=== PATIENT | male | born 1960 | race Caucasian/White ===

== ENCOUNTER 2019-05-06 00:13 | Inpatient (IN) | payer OTHER ==
[~2019-05-06] VITALS: Ht 185.4 cm; Wt 60.8 kg
[2019-05-06 00:15] VITALS: BP 141/63; PULSE 81; RESP 18
[2019-05-06 00:40] VITALS: Ht 185.4 cm; Wt 60.8 kg
[2019-05-06 02:00] VITALS: BP 118/67; PULSE 87; RESP 18
[2019-05-06] MEDS ORDERED: ACETAMINOPHEN 325 MG TAB PEG PRN (02:00)
[2019-05-06] MEDS ORDERED: NACL 0.9% 3 ML SYG IV SCH (02:00)
[2019-05-06] MEDS ORDERED: morphine 2 MG INJ IV PRN (02:00)
[2019-05-06] MEDS ORDERED: ALBUTEROL/IPRATROPIUM (NEB) 3 ML AMP HHN PRN (02:00)
[2019-05-06] MEDS ORDERED: ONDANSETRON 4 MG INJ IV PRN (02:00)
[2019-05-06] MEDS ORDERED: CARB15DR3 BOTH EYES (02:17)
[2019-05-06] MEDS ORDERED: LANS15CA5 GTB (02:17)
[2019-05-06] MEDS ORDERED: LEVA1.257 INHALATION (02:17)
[2019-05-06] MEDS ORDERED: ASC500 GTB (02:17)
[2019-05-06] MEDS ORDERED: MULTI GTB (02:17)
[2019-05-06] MEDS ORDERED: FER325 GTB (02:17)
[2019-05-06] MEDS ORDERED: MAGN400T28 GTB (02:17)
[2019-05-06] MEDS ORDERED: ACET325T45 GTB (02:17)
[2019-05-06] MEDS ORDERED: CYAN100080 GTB (02:17)
[2019-05-06] MEDS ORDERED: ACET-2047 GTB (02:17)
[2019-05-06] MEDS ORDERED: PHEN30SP8 MM (02:17)
[2019-05-06] MEDS ORDERED: TETR15DR63 BOTH EYES (02:17)
[2019-05-06] MEDS ORDERED: FLUT9.9S NASAL (02:17)
[2019-05-06] MEDS: DEXTROSE 5%-0.45% NACL 1,000 ML IV SCH ×3 (02:26→20:22)
[2019-05-06] MEDS ORDERED: FLUTICASONE 0.05% 16 GM NAS SPRAY NASAL PRN (03:30)
[2019-05-06] MEDS ORDERED: TETRAHYDROZOLINE 0.05% 15 ML OPH BOTH EYES PRN (03:30)
[2019-05-06] MEDS ORDERED: CARBOXYMETHYLCELLULOSE 0.5% 0.4 ML OPH BOTH EYES PRN (03:30)
[2019-05-06] MEDS: PANTOPRAZOLE 40 MG INJ IV SCH (05:45)
[2019-05-06] MEDS ORDERED: PHENOL 1.4% SOLN 180 ML BTL MT PRN (06:30)
[2019-05-06 08:00] VITALS: BP 149/67; PULSE 68; RESP 20
[2019-05-06] MEDS: FERROUS SULFATE (EC) 325 MG TAB PO SCH ×2 (09:00→13:00)
[2019-05-06] MEDS: CYANOCOBALAMIN 500 MCG TAB GTB SCH (09:10)
[2019-05-06] MEDS: MULTIVITAMINS 30 ML CUP GTB SCH (09:10)
[2019-05-06] MEDS: ASCORBIC ACID 500 MG TAB GTB SCH (09:10)
--- NOTE | 2019-05-06 10:36 | HP ---
Date/Time of Note Date/Time of Note DATE: 05/06/19 TIME: 10:33 Assessment/Plan VTE Prophylaxis Pharmacological prophylaxis: heparin Lines/Catheters IV Catheter Type (from [facility]): [place] Urinary Cath still in place: No Assessment/Plan Assessment/Plan 58-year-old male with a history of gastric cancer, CVA, chronic encephalopathy, open heart surgery, IVC filter placement, G-tube status, likely iron deficiency anemia, right-sided colostomy transferred from outside hospital because of insurance reason for management/work-up of anemia PLAN -No reported history of hematemesis. Patient has a colostomy with greenish stool. Reportedly guaiac was negative at the outside facility -FOBT, iron study -GI consult -Continue home meds, adjust as needed -Gather additional information from family during the day about his cancer history and his chronic disease. -Continue supportive care Result Diagram: 05/06/19 0605/06/19 0605 Results 24hrs Laboratory Tests Test 05/06/19 06:05 White Blood Count 8.7 Red Blood Count 3.48 L Hemoglobin 7.0 L Hematocrit 24.6 L Mean Corpuscular Volume 70.7 L Mean Corpuscular Hemoglobin 20.1 L Mean Corpuscular Hemoglobin Concent 28.5 L Red Cell Distribution Width 18.6 H Platelet Count 667 H Mean Platelet Volume 8.6 Immature Granulocytes % 0.700 H Neutrophils % 71.7 Segmented Neutrophils % (Manual) 69 Band Neutrophils % (Manual) 5 H Lymphocytes % 17.8 Lymphocytes % (Manual) 19 Reactive Lymphocytes % (Manual) 1 H Monocytes % 8.1 Monocytes % (Manual) 1 Eosinophils % 0.9 Eosinophils % (Manual) 2 Basophils % 0.8 Basophils % (Manual) 3 H Nucleated Red Blood Cells % 0.0 Immature Granulocytes # 0.060 H Neutrophils # 6.2 Neutrophils # (Manual) 6.0 Band Neutrophils # 0.4 Lymphocytes (Manual) 1.6 Lymphocytes # 1.6 Reactive Lymphocytes # 0.0 Monocytes # 0.7 Monocytes # (Manual) 0.0 L Eosinophils # 0.1 Basophils # 0.1 Basophils # (Manual) 0.2 H Nucleated Red Blood Cells # 0.0 Platelet Estimate INCREASED Giant Platelets 4 H Polychromasia 3+ Poikilocytosis 1+ Anisocytosis 2+ Macrocytosis 1+ Sodium Level 138 Potassium Level 3.9 Chloride Level 103 Carbon Dioxide Level 26 Anion Gap 9 Blood Urea Nitrogen 10 Creatinine 0.71 Est Glomerular Filtrat Rate mL/min > 60 Glucose Level 112 Hemoglobin A1c 6.0 H Calcium Level 9.2 Phosphorus Level 4.4 Magnesium Level 1.7 Iron Level 11 L Total Iron Binding Capacity 226 L Percent Iron Saturation 5 L Ferritin 177.0 Total Bilirubin 0.3 Direct Bilirubin 0.00 Indirect Bilirubin 0.3 Aspartate Amino Transf (AST/SGOT) 22 Alanine Aminotransferase (ALT/SGPT) 18 Alkaline Phosphatase 249 H Lactate Dehydrogenase 388 Total Protein 7.1 Albumin 3.0 L Globulin 4.10 H Albumin/Globulin Ratio 0.73 Triglycerides Level 109 Cholesterol Level 123 LDL Cholesterol, Calculated 65 HDL Cholesterol 36 Cholesterol/HDL Ratio 3.4 Vitamin B12 Level 963 H Folate 7.5 Thyroid Stimulating Hormone (TSH) 1.180 HPI/ROS Admit Date/Time Admit Date/Time May 06, 2019 at 00:13 Hx of Present Illness Patient is a 58-year-old male with a history of gastric cancer, CVA, chronic encephalopathy, open heart surgery, IVC filter placement, G-tube status who was transferred from outside hospital for anemia. Found to have a hemoglobin of 7.1. No reported history of upper or lower GI bleed. Patient has a right-sided colostomy with greenish stool. Patient is nonverbal and as such information is gathered from the transferring ER physician. PMH/Family/Social Past Medical History Past Surgical Hx: other (see HPI) Family History Significant Family History: no pertinent family hx Social History Alcohol Use: none Smoking Status: Never smoker Drug Use: none Exam Constitutional: No acute distress Head: normocephalic, atraumatic Eyes: EOMI, PERRL Respiratory: no distress Cardiovascular: regular rate and rhythm Gastrointestinal: soft Extremities: normal pulses Medications Current Medications Dextrose/Sodium Chloride 1,000 ml @ 100 mls/hr Q10H IV Last administered on 05/06/19at 02:26; Admin Dose 100 MLS/HR; Start 05/06/19 at 01:52 IV Flush (NS 3 ml) 3 ml PER PROTOCOL IV ; Start 05/06/19 at 02:00 Ondansetron HCl (Zofran Inj) 4 mg Q6H PRN IV NAUSEA/VOMITING; Start 05/06/19 at 02:00 Morphine Sulfate (morphine) 2 mg Q4H PRN IV .SEVERE PAIN 7-10; Start 05/06/19 at 02:00 Pantoprazole (Protonix Iv) 40 mg DAILY@06 IV Last administered on 05/06/19at 05:45; Admin Dose 40 MG; Start 05/06/19 at 06:00 Albuterol/ Ipratropium (Duoneb) 3 ml Q2H RESP THERAPY PRN HHN SHORTNESS OF BREATH; Start 05/06/19 at 02:00 Ferrous Sulfate (Ferrous Sulfate (Ec)) 325 mg TID PO ; Start 05/06/19 at 09:00 Acetaminophen (Tylenol Tab) 650 mg Q6H PRN PEG MILD PAIN(1-3)OR ELEVATED TEMP; Start 05/06/19 at 02:00 Ascorbic Acid (Vitamin C) 500 mg DAILY GTB Last administered on 05/06/19at 09:10; Admin Dose 500 MG; Start 05/06/19 at 09:00 Eye Lubricant (Refresh Plus) 1 drop QID PRN BOTH EYES DRY EYES; Start 05/06/19 at 03:30 Cyanocobalamin (Vitamin B12) 1,000 mcg DAILY GTB Last administered on 05/06/19at 09:10; Admin Dose 1,000 MCG; Start 05/06/19 at 09:00 Fluticasone Propionate (Flonase 0.05% Nasal) 2 spray DAILY PRN NASAL ALLERGIC REACTION; Start 05/06/19 at 03:30 Multivitamins (Multivitamin) 30 ml DAILY GTB Last administered on 05/06/19at 09:10; Admin Dose 30 ML; Start 05/06/19 at 09:00 Tetrahydrozoline HCl (Geneyes Oph) 1 drop Q8 PRN BOTH EYES DRY EYES; Start 05/06/19 at 03:30 Phenol (Chloraseptic Throat [place]) 3 spray Q3H PRN MT SORE THROAT; Start 05/06/19 at 06:30 Coded Allergies: No Known Allergy (Unverified , 05/06/19) Social History Smoking Status: Never smoker Exam/Review of Systems Vital Signs Vitals Vital Signs Date Temp Pulse Resp B/P (MAP) Pulse Ox O2 O2 Flow FiO2 Time Delivery Rate 05/06/19 98.6 68 20 149/67 94 08:00 (94) Intake and Output 05/05/19 05/05/19 05/06/19 1515:00 23:00 07:00 IntakeIntake Total 300 ml BalanceBalance 300 ml SHERRILL AARON MD May 06, 2019 10:36
--- NOTE | 2019-05-06 11:39 | CONS ---
Assessment/Plan Assessment/Plan Hospital Course (Demo Recall) Summary Assessment and Plan: Assessment: Iron deficiency anemia Double hepatic lesions consistent with diffuse metastatic disease Large poorly evaluated mass in the right upper quadrant region adjacent to the liver and pancreas and mila hepatis, personally secondary to recurrent neoplasm History of gastric CA status post gastrectomy Previous abdominal surgery with ileostomy, Previous open heart surgery Chronic encephalopathy Plan: Endoscopic evaluation was offered currently declined at this time. Recommend oncology consult Continue to monitor H/H transfuse as needed Continue supportive care Further recommendations based on clinical course Patient seen in collaboration Dr. Nixon CC: JAYNE NIXON MD ; Consultation Date/Type/Reason Admit Date/Time May 06, 2019 at 00:13 Date of Consultation: May 06, 2019 Type of Consult GI Reason for Consultation Anemia Date/Time of Note DATE: 05/06/19 TIME: 11:35 Hx of Present Illness This a 41-year-old male with past medical history of gastric CA status post gastrectomy, open heart surgery, cardiac arrest, previously on dialysis, multiple abdominal surgeries with right ileostomy who presented to the hospital per the directions of their physician for anemia. At time evaluation patient is resting in bed J-tube in place with ileostomy and noted brown frothy stool patient's denies any overt signs of GI bleed including hematemesis or hematochezia or melena. J-tube was visualized with dark material within the J- tube, patient's states this is from medication i.e. iron. lavage was completed no blood was noted. I discussed possibility of endoscopic evaluation at this time EGD and colonoscopy was declined. CT abdomen pelvis was obtained without contrast enlarged poorly evaluated mass in the right upper quadrant region adjacent to the liver and pancreas and mila hepatis, presumably secondary to recurrent neoplasm, numerous diffuse scattered multifocal intra hepatic metastatic disease. Left lower quadrant J-tube in place and grossly appropriate location. Right anterior lateral mid abdominal ileostomy, uncomplicated. Scattered benign chronic changes seen elsewhere throughout the study. Review of Systems: A 12 system, review was conducted and is negative except as noted in the HPI or here. Past Medical History Home Meds Reported Medications Levalbuterol Hcl* (Levalbuterol Hcl*) 1.25 Mg/3 Ml Vial.neb, 1.25 MG INHALATION Q4 PRN for SHORTNESS OF BREATH, VIAL 05/06/19 Ascorbic Acid (Vitamin C) 500 Mg Tab, 500 MG GTB DAILY, TAB 05/06/19 Cyanocobalamin* (Vitamin B-12*) 1,000 Mcg Tablet.sa, 1000 MCG GTB DAILY, TAB 05/06/19 Tetrahydrozoline Hcl* (Visine*) 0.05% - 15 Ml Drops, 1 DROP BOTH EYES Q8 PRN for DRY EYES, #1 EA 05/06/19 Carboxymethylcellulose Sodium* (Refresh Tears*) 15 Ml Drops, 1 DROP BOTH EYES QID PRN for DRY EYES, #1 EA 05/06/19 Multivitamins* (Theragran*) 1 Tab Tab, 1 TAB GTB DAILY, TAB 05/06/19 Magnesium Oxide* (Magnesium Oxide*) 400 Mg Tablet, 800 MG GTB BID, TAB 05/06/19 Lansoprazole* (Lansoprazole*) 15 Mg Capsule.dr, 5 ML GTB AC BREAKFAST, CAP 05/06/19 Fluticasone Propionate (Flonase Allergy Relief) 9.9 Ml [place].susp, 2 SPRAY NASAL DAILY PRN for ALLERGIC REACTION, #1 BOTTLE TO EACH NOSTRIL 05/06/19 Ferrous Sulfate* (Ferrous Sulfate*) 325 Mg Tabec, 325 MG GTB DAILY, TAB 05/06/19 Phenol/Glycerin (Chloraseptic [place]) 30 Ml [place], 3 SPRAY MM Q2H PRN for SORE THROAT, #1 BOTTLE 05/06/19 Acetaminophen* (Acetaminophen*) 650 Mg Tablet, 650 MG GTB Q6H PRN for PAIN AND OR ELEVATED TEMP, #30 TAB 05/06/19 Acetaminophen* (Acetaminophen*) 325 Mg Tablet, 325 MG GTB Q4H PRN for PAIN AND OR ELEVATED TEMP, #30 TAB 05/06/19 Medications Current Medications Dextrose/Sodium Chloride 1,000 ml @ 100 mls/hr Q10H IV Last administered on 05/06/19at 02:26; Admin Dose 100 MLS/HR; Start 05/06/19 at 01:52 IV Flush (NS 3 ml) 3 ml PER PROTOCOL IV ; Start 05/06/19 at 02:00 Ondansetron HCl (Zofran Inj) 4 mg Q6H PRN IV NAUSEA/VOMITING; Start 05/06/19 at 02:00 Morphine Sulfate (morphine) 2 mg Q4H PRN IV .SEVERE PAIN 7-10; Start 05/06/19 at 02:00 Pantoprazole (Protonix Iv) 40 mg DAILY@06 IV Last administered on 05/06/19at 05:45; Admin Dose 40 MG; Start 05/06/19 at 06:00 Albuterol/ Ipratropium (Duoneb) 3 ml Q2H RESP THERAPY PRN HHN SHORTNESS OF BREATH; Start 05/06/19 at 02:00 Ferrous Sulfate (Ferrous Sulfate (Ec)) 325 mg TID PO ; Start 05/06/19 at 09:00 Acetaminophen (Tylenol Tab) 650 mg Q6H PRN PEG MILD PAIN(1-3)OR ELEVATED TEMP; Start 05/06/19 at 02:00 Ascorbic Acid (Vitamin C) 500 mg DAILY GTB Last administered on 05/06/19at 09:10; Admin Dose 500 MG; Start 05/06/19 at 09:00 Eye Lubricant (Refresh Plus) 1 drop QID PRN BOTH EYES DRY EYES; Start 05/06/19 at 03:30 Cyanocobalamin (Vitamin B12) 1,000 mcg DAILY GTB Last administered on 05/06/19at 09:10; Admin Dose 1,000 MCG; Start 05/06/19 at 09:00 Fluticasone Propionate (Flonase 0.05% Nasal) 2 spray DAILY PRN NASAL ALLERGIC REACTION; Start 05/06/19 at 03:30 Multivitamins (Multivitamin) 30 ml DAILY GTB Last administered on 05/06/19at 09:10; Admin Dose 30 ML; Start 05/06/19 at 09:00 Tetrahydrozoline HCl (Geneyes Oph) 1 drop Q8 PRN BOTH EYES DRY EYES; Start 05/06/19 at 03:30 Phenol (Chloraseptic Throat [place]) 3 spray Q3H PRN MT SORE THROAT; Start 05/06/19 at 06:30 Allergies: Coded Allergies: No Known Allergy (Unverified , 05/06/19) Social History Smoking Status: Never smoker Exam/Review of Systems Exam Vitals Vital Signs Date Temp Pulse Resp B/P (MAP) Pulse Ox O2 O2 Flow FiO2 Time Delivery Rate 05/06/19 98.6 68 20 149/67 94 08:00 (94) Intake and Output 05/05/19 05/05/19 05/06/19 1515:00 23:00 07:00 IntakeIntake Total 300 ml BalanceBalance 300 ml Exam PHYSICAL EXAMINATION: GENERAL: Alert & oriented, in no acute distress SKIN: Midline abd scar from previous abd surgery HEAD: Normocephalic, atraumatic, no tenderness. EYES: Pupils equal reactive to light and accommodation, no discharge. EARS/NOSE AND THROAT: Ears normal, nose normal NECK: Supple, no masses, thyroid normal CHEST: Inspection within normal limits. CARDIOVASCULAR: Heart: Regular rate and rhythm RESPIRATORY: Lungs clear to auscultation, no rubs GASTROINTESTINAL AND LIVER: Abdomen: Soft, non tenderness, J-tube, ileostomy, non-distended, no hernias, no masses, no organomegaly, no ascites, no guarding, no rebound tenderness, normoactive bowel sounds. Rectal: Deferred. Results Result Diagram: 05/06/1960405/06/19604 Results 24hrs Laboratory Tests Test 05/06/19 06:05 White Blood Count 8.7 Red Blood Count 3.48 L Hemoglobin 7.0 L Hematocrit 24.6 L Mean Corpuscular Volume 70.7 L Mean Corpuscular Hemoglobin 20.1 L Mean Corpuscular Hemoglobin Concent 28.5 L Red Cell Distribution Width 18.6 H Platelet Count 667 H Mean Platelet Volume 8.6 Immature Granulocytes % 0.700 H Neutrophils % 71.7 Segmented Neutrophils % (Manual) 69 Band Neutrophils % (Manual) 5 H Lymphocytes % 17.8 Lymphocytes % (Manual) 19 Reactive Lymphocytes % (Manual) 1 H Monocytes % 8.1 Monocytes % (Manual) 1 Eosinophils % 0.9 Eosinophils % (Manual) 2 Basophils % 0.8 Basophils % (Manual) 3 H Nucleated Red Blood Cells % 0.0 Immature Granulocytes # 0.060 H Neutrophils # 6.2 Neutrophils # (Manual) 6.0 Band Neutrophils # 0.4 Lymphocytes (Manual) 1.6 Lymphocytes # 1.6 Reactive Lymphocytes # 0.0 Monocytes # 0.7 Monocytes # (Manual) 0.0 L Eosinophils # 0.1 Basophils # 0.1 Basophils # (Manual) 0.2 H Nucleated Red Blood Cells # 0.0 Platelet Estimate INCREASED Giant Platelets 4 H Polychromasia 3+ Poikilocytosis 1+ Anisocytosis 2+ Macrocytosis 1+ Sodium Level 138 Potassium Level 3.9 Chloride Level 103 Carbon Dioxide Level 26 Anion Gap 9 Blood Urea Nitrogen 10 Creatinine 0.71 Est Glomerular Filtrat Rate mL/min > 60 Glucose Level 112 Hemoglobin A1c 6.0 H Calcium Level 9.2 Phosphorus Level 4.4 Magnesium Level 1.7 Iron Level 11 L Total Iron Binding Capacity 226 L Percent Iron Saturation 5 L Ferritin 177.0 Total Bilirubin 0.3 Direct Bilirubin 0.00 Indirect Bilirubin 0.3 Aspartate Amino Transf (AST/SGOT) 22 Alanine Aminotransferase (ALT/SGPT) 18 Alkaline Phosphatase 249 H Lactate Dehydrogenase 388 Total Protein 7.1 Albumin 3.0 L Globulin 4.10 H Albumin/Globulin Ratio 0.73 Triglycerides Level 109 Cholesterol Level 123 LDL Cholesterol, Calculated 65 HDL Cholesterol 36 Cholesterol/HDL Ratio 3.4 Vitamin B12 Level 963 H Folate 7.5 Thyroid Stimulating Hormone (TSH) 1.180 Medications Medication Current Medications Dextrose/Sodium Chloride 1,000 ml @ 100 mls/hr Q10H IV Last administered on 05/06/19at 02:26; Admin Dose 100 MLS/HR; Start 05/06/19 at 01:52 IV Flush (NS 3 ml) 3 ml PER PROTOCOL IV ; Start 05/06/19 at 02:00 Ondansetron HCl (Zofran Inj) 4 mg Q6H PRN IV NAUSEA/VOMITING; Start 05/06/19 at 02:00 Morphine Sulfate (morphine) 2 mg Q4H PRN IV .SEVERE PAIN 7-10; Start 05/06/19 at 02:00 Pantoprazole (Protonix Iv) 40 mg DAILY@06 IV Last administered on 05/06/19at 05:45; Admin Dose 40 MG; Start 05/06/19 at 06:00 Albuterol/ Ipratropium (Duoneb) 3 ml Q2H RESP THERAPY PRN HHN SHORTNESS OF BREATH; Start 05/06/19 at 02:00 Ferrous Sulfate (Ferrous Sulfate (Ec)) 325 mg TID PO ; Start 05/06/19 at 09:00 Acetaminophen (Tylenol Tab) 650 mg Q6H PRN PEG MILD PAIN(1-3)OR ELEVATED TEMP; Start 05/06/19 at 02:00 Ascorbic Acid (Vitamin C) 500 mg DAILY GTB Last administered on 05/06/19at 09:10; Admin Dose 500 MG; Start 05/06/19 at 09:00 Eye Lubricant (Refresh Plus) 1 drop QID PRN BOTH EYES DRY EYES; Start 05/06/19 at 03:30 Cyanocobalamin (Vitamin B12) 1,000 mcg DAILY GTB Last administered on 05/06/19at 09:10; Admin Dose 1,000 MCG; Start 05/06/19 at 09:00 Fluticasone Propionate (Flonase 0.05% Nasal) 2 spray DAILY PRN NASAL ALLERGIC REACTION; Start 05/06/19 at 03:30 Multivitamins (Multivitamin) 30 ml DAILY GTB Last administered on 05/06/19at 09:10; Admin Dose 30 ML; Start 05/06/19 at 09:00 Tetrahydrozoline HCl (Geneyes Oph) 1 drop Q8 PRN BOTH EYES DRY EYES; Start 05/06/19 at 03:30 Phenol (Chloraseptic Throat [place]) 3 spray Q3H PRN MT SORE THROAT; Start 05/06/19 at 06:30 BRADY JIMENEZ May 06, 2019 11:39
[2019-05-06 14:00] VITALS: BP 119/62; PULSE 86; RESP 20
--- NOTE | 2019-05-06 17:44 | PN ---
Date/Time of Note Date/Time of Note DATE: 05/06/19 TIME: 17:23 Assessment/Plan VTE Prophylaxis Risk score (from [facility])>0 risk: 2 SCD applied (from [facility]): Yes Pharmacological prophylaxis: other Pharm contraindication: other Lines/Catheters IV [facility]ter Type (from [facility]): Peripheral IV Urinary Cath still in place: No Assessment/Plan Assessment/Plan 1. Iron deficiency anemia, malignancy related, iv iron 2. A large poorly evaluated mass in the right upper quadrant region adjacent to the liver and pancreas and mila hepatis, multiple liver masses, consider mets, oncology consult 3. History of gastric CA status post gastrectomy in 07/16/2018 at [facility] 4. s/p ileostomy 5. J-tube 6. Previous open heart surgery in [place] 17 years ago 7. Chronic encephalopathy Result Diagram: 05/06/19 0605 05/06/19 0605 Results 24hrs Laboratory Tests Test 05/06/19 06:05 05/06/19 11:10 White Blood Count 8.7 Red Blood Count 3.48 L Hemoglobin 7.0 L Hematocrit 24.6 L Mean Corpuscular Volume 70.7 L Mean Corpuscular Hemoglobin 20.1 L Mean Corpuscular Hemoglobin Concent 28.5 L Red Cell Distribution Width 18.6 H Platelet Count 667 H Mean Platelet Volume 8.6 Immature Granulocytes % 0.700 H Neutrophils % 71.7 Segmented Neutrophils % (Manual) 69 Band Neutrophils % (Manual) 5 H Lymphocytes % 17.8 Lymphocytes % (Manual) 19 Reactive Lymphocytes % (Manual) 1 H Monocytes % 8.1 Monocytes % (Manual) 1 Eosinophils % 0.9 Eosinophils % (Manual) 2 Basophils % 0.8 Basophils % (Manual) 3 H Nucleated Red Blood Cells % 0.0 Immature Granulocytes # 0.060 H Neutrophils # 6.2 Neutrophils # (Manual) 6.0 Band Neutrophils # 0.4 Lymphocytes (Manual) 1.6 Lymphocytes # 1.6 Reactive Lymphocytes # 0.0 Monocytes # 0.7 Monocytes # (Manual) 0.0 L Eosinophils # 0.1 Basophils # 0.1 Basophils # (Manual) 0.2 H Nucleated Red Blood Cells # 0.0 Platelet Estimate INCREASED Giant Platelets 4 H Polychromasia 3+ Poikilocytosis 1+ Anisocytosis 2+ Macrocytosis 1+ Sodium Level 138 Potassium Level 3.9 Chloride Level 103 Carbon Dioxide Level 26 Anion Gap 9 Blood Urea Nitrogen 10 Creatinine 0.71 Est Glomerular Filtrat Rate mL/min > 60 Glucose Level 112 Hemoglobin A1c 6.0 H Calcium Level 9.2 Phosphorus Level 4.4 Magnesium Level 1.7 Iron Level 11 L Total Iron Binding Capacity 226 L Percent Iron Saturation 5 L Ferritin 177.0 Total Bilirubin 0.3 Direct Bilirubin 0.00 Indirect Bilirubin 0.3 Aspartate Amino Transf (AST/SGOT) 22 Alanine Aminotransferase (ALT/SGPT) 18 Alkaline Phosphatase 249 H Lactate Dehydrogenase 388 Total Protein 7.1 Albumin 3.0 L Globulin 4.10 H Albumin/Globulin Ratio 0.73 Triglycerides Level 109 Cholesterol Level 123 LDL Cholesterol, Calculated 65 HDL Cholesterol 36 Cholesterol/HDL Ratio 3.4 Vitamin B12 Level 963 H Folate 7.5 Thyroid Stimulating Hormone (TSH) 1.180 Stool Occult Blood POSITIVE Subjective 24 Hr Interval Summary Free Text/Dictation no distress, nonverbal Exam/Review of Systems Exam Vitals Vital Signs Date Temp Pulse Resp B/P (MAP) Pulse Ox O2 O2 Flow FiO2 Time Delivery Rate 05/06/19 98.6 86 20 119/62 96 14:00 (81) Intake and Output 05/05/19 05/05/19 05/06/19 1414:59 22:59 06:59 IntakeIntake Total 300 ml BalanceBalance 300 ml Constitutional: alert, well developed, non-verbal Head: normocephalic, atraumatic Eyes: nl conjunctiva, EOMI ENMT: nl external ears & nose, nl lips & teeth, nl nasal mucosa & septum Neck: supple, non-tender Respiratory: clear to auscultation, normal air movement; No congested cough, No crackles/rales, No diminished breath sounds, No intercostal retraction, No labored breathing, No respirations, No tactile fremitus, No wheezing, No other Cardiovascular: regular rate and rhythm, nl pulses; No bruits, No diastolic murmur, No edema, No gallop, No irregular rhythm, No jugular venous distention (JVD), No murmurs/extra sounds, No rub, No systolic murmur, No S3, No S4, No other Gastrointestinal: soft, nl liver, spleen, other (iliostomy and J-tube) Musculoskeletal: nl extremities to inspection Extremities: normal pulses; No calf tenderness, No cyanosis, No clubbing, No edema, No pitting pedal edema, No palpable cord, No tenderness, No other Neurological: [employer] II-XII intact, nl mental status, nl speech, nl strength Results Results 24hrs Laboratory Tests Test 05/06/19 06:05 05/06/19 11:10 White Blood Count 8.7 Red Blood Count 3.48 L Hemoglobin 7.0 L Hematocrit 24.6 L Mean Corpuscular Volume 70.7 L Mean Corpuscular Hemoglobin 20.1 L Mean Corpuscular Hemoglobin Concent 28.5 L Red Cell Distribution Width 18.6 H Platelet Count 667 H Mean Platelet Volume 8.6 Immature Granulocytes % 0.700 H Neutrophils % 71.7 Segmented Neutrophils % (Manual) 69 Band Neutrophils % (Manual) 5 H Lymphocytes % 17.8 Lymphocytes % (Manual) 19 Reactive Lymphocytes % (Manual) 1 H Monocytes % 8.1 Monocytes % (Manual) 1 Eosinophils % 0.9 Eosinophils % (Manual) 2 Basophils % 0.8 Basophils % (Manual) 3 H Nucleated Red Blood Cells % 0.0 Immature Granulocytes # 0.060 H Neutrophils # 6.2 Neutrophils # (Manual) 6.0 Band Neutrophils # 0.4 Lymphocytes (Manual) 1.6 Lymphocytes # 1.6 Reactive Lymphocytes # 0.0 Monocytes # 0.7 Monocytes # (Manual) 0.0 L Eosinophils # 0.1 Basophils # 0.1 Basophils # (Manual) 0.2 H Nucleated Red Blood Cells # 0.0 Platelet Estimate INCREASED Giant Platelets 4 H Polychromasia 3+ Poikilocytosis 1+ Anisocytosis 2+ Macrocytosis 1+ Sodium Level 138 Potassium Level 3.9 Chloride Level 103 Carbon Dioxide Level 26 Anion Gap 9 Blood Urea Nitrogen 10 Creatinine 0.71 Est Glomerular Filtrat Rate mL/min > 60 Glucose Level 112 Hemoglobin A1c 6.0 H Calcium Level 9.2 Phosphorus Level 4.4 Magnesium Level 1.7 Iron Level 11 L Total Iron Binding Capacity 226 L Percent Iron Saturation 5 L Ferritin 177.0 Total Bilirubin 0.3 Direct Bilirubin 0.00 Indirect Bilirubin 0.3 Aspartate Amino Transf (AST/SGOT) 22 Alanine Aminotransferase (ALT/SGPT) 18 Alkaline Phosphatase 249 H Lactate Dehydrogenase 388 Total Protein 7.1 Albumin 3.0 L Globulin 4.10 H Albumin/Globulin Ratio 0.73 Triglycerides Level 109 Cholesterol Level 123 LDL Cholesterol, Calculated 65 HDL Cholesterol 36 Cholesterol/HDL Ratio 3.4 Vitamin B12 Level 963 H Folate 7.5 Thyroid Stimulating Hormone (TSH) 1.180 Stool Occult Blood POSITIVE Medications Medication Current Medications Dextrose/Sodium Chloride 1,000 ml @ 100 mls/hr Q10H IV Last administered on 05/06/19at 02:26; Admin Dose 100 MLS/HR; Start 05/06/19 at 01:52 IV Flush (NS 3 ml) 3 ml PER PROTOCOL IV ; Start 05/06/19 at 02:00 Ondansetron HCl (Zofran Inj) 4 mg Q6H PRN IV NAUSEA/VOMITING; Start 05/06/19 at 02:00 Morphine Sulfate (morphine) 2 mg Q4H PRN IV .SEVERE PAIN 7-10; Start 05/06/19 at 02:00 Pantoprazole (Protonix Iv) 40 mg DAILY@06 IV Last administered on 05/06/19at 05:45; Admin Dose 40 MG; Start 05/06/19 at 06:00 Albuterol/ Ipratropium (Duoneb) 3 ml Q2H RESP THERAPY PRN HHN SHORTNESS OF BREATH; Start 05/06/19 at 02:00 Acetaminophen (Tylenol Tab) 650 mg Q6H PRN PEG MILD PAIN(1-3)OR ELEVATED TEMP; Start 05/06/19 at 02:00 Ascorbic Acid (Vitamin C) 500 mg DAILY GTB Last administered on 05/06/19at 09:10; Admin Dose 500 MG; Start 05/06/19 at 09:00 Eye Lubricant (Refresh Plus) 1 drop QID PRN BOTH EYES DRY EYES; Start 05/06/19 at 03:30 Cyanocobalamin (Vitamin B12) 1,000 mcg DAILY GTB Last administered on 05/06/19at 09:10; Admin Dose 1,000 MCG; Start 05/06/19 at 09:00 Fluticasone Propionate (Flonase 0.05% Nasal) 2 spray DAILY PRN NASAL ALLERGIC REACTION; Start 05/06/19 at 03:30 Multivitamins (Multivitamin) 30 ml DAILY GTB Last administered on 05/06/19at 09:10; Admin Dose 30 ML; Start 05/06/19 at 09:00 Tetrahydrozoline HCl (Geneyes Oph) 1 drop Q8 PRN BOTH EYES DRY EYES; Start 05/06/19 at 03:30 Phenol (Chloraseptic Throat [place]) 3 spray Q3H PRN MT SORE THROAT; Start 05/06/19 at 06:30 Ferrous Sulfate (Feosol Liquid Cup) 300 mg TID PEG ; Start 05/06/19 at 21:00 TENNILLE LUKE MD May 06, 2019 17:33
[2019-05-06] MEDS ORDERED: FERROUS SULFATE 60 MG/ML 5ML CUP PEG SCH (21:00)
[2019-05-06 21:08] VITALS: BP 107/54; PULSE 89; RESP 18
--- NOTE | 2019-05-06 23:44 | CONS ---
Assessment/Plan Assessment/Plan Hospital Course (Demo Recall) HX GASTRIC CANCER 2018 , POST SURGERY, CURRENTLY WITH DIFFUSE INTRAABDOMINAL METS hepatic lesions consistent with diffuse metastatic disease Large poorly evaluated mass in the right upper quadrant region adjacent to the liver and pancreas and mila hepatis, personally secondary to recurrent neoplasm History of gastric CA status post gastrectomy Large calcified lymph node in the mila hepatis region as well, also presumably neoplastic. Numerous diffuse scattered multifocal intrahepatic metastatic disease. 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 Previous abdominal surgery with ileostomy, Previous open heart surgery Chronic encephalopathy Consultation Date/Type/Reason Admit Date/Time May 06, 2019 at 00:13 Date of Consultation: May 06, 2019 Type of Consult HEMEON Reason for Consultation GASTRIC CANCER Requesting Provider: TENNILLE LUKE MD Date/Time of Note DATE: 05/06/19 TIME: 23:31 Hx of Present Illness This a 41-year-old male with past medical history of gastric CA status post g astrectomy, open heart surgery, cardiac arrest, previously on dialysis, multiple abdominal surgeries with right ileostomy who presented to the hospital per the directions of their physician for anemia. At time evaluation patient is resting in bed J-tube in place with ileostomy and noted brown frothy stool patient's denies any overt signs of GI bleed including hematemesis or hematochezia or melena. J-tube was visualized with dark material within the J-tube, patient's states this is from medication i.e. iron. lavage was completed no blood was noted. CT abdomen pelvis was obtained without contrast enlarged poorly evaluated mass in the right upper quadrant region adjacent to the liver and pancreas and mila hepatis, presumably secondary to recurrent neoplasm, numerous diffuse scattered multifocal intrahepatic metastatic disease. Left lower quadrant J-tube in place and grossly appropriate location. Right anterior lateral mid abdominal ileostomy, uncomplicated. Scattered benign chronic changes seen elsewhere throughout the study. Review of Systems: A 12 system, review was conducted and is negative except as noted in the HPI or here. Past Medical History Home Meds Reported Medications Levalbuterol Hcl* (Levalbuterol Hcl*) 1.25 Mg/3 Ml Vial.neb, 1.25 MG INHALATION Q4 PRN for SHORTNESS OF BREATH, VIAL 05/06/19 Ascorbic Acid (Vitamin C) 500 Mg Tab, 500 MG GTB DAILY, TAB 05/06/19 Cyanocobalamin* (Vitamin B-12*) 1,000 Mcg Tablet.sa, 1000 MCG GTB DAILY, TAB 05/06/19 Tetrahydrozoline Hcl* (Visine*) 0.05% - 15 Ml Drops, 1 DROP BOTH EYES Q8 PRN for DRY EYES, #1 EA 05/06/19 Carboxymethylcellulose Sodium* (Refresh Tears*) 15 Ml Drops, 1 DROP BOTH EYES QI D PRN for DRY EYES, #1 EA 05/06/19 Multivitamins* (Theragran*) 1 Tab Tab, 1 TAB GTB DAILY, TAB 05/06/19 Magnesium Oxide* (Magnesium Oxide*) 400 Mg Tablet, 800 MG GTB BID, TAB 05/06/19 Lansoprazole* (Lansoprazole*) 15 Mg Capsule.dr, 5 ML GTB AC BREAKFAST, CAP 05/06/19 Fluticasone Propionate (Flonase Allergy Relief) 9.9 Ml [place].susp, 2 SPRAY NASAL DAILY PRN for ALLERGIC REACTION, #1 BOTTLE TO EACH NOSTRIL 05/06/19 Ferrous Sulfate* (Ferrous Sulfate*) 325 Mg Tabec, 325 MG GTB DAILY, TAB 05/06/19 Phenol/Glycerin (Chloraseptic Max [place]) 30 Ml [place], 3 SPRAY MM Q2H PRN for SORE THROAT, #1 BOTTLE 05/06/19 Acetaminophen* (Acetaminophen*) 650 Mg Tablet, 650 MG GTB Q6H PRN for PAIN AND OR ELEVATED TEMP, #30 TAB 05/06/19 Acetaminophen* (Acetaminophen*) 325 Mg Tablet, 325 MG GTB Q4H PRN for PAIN AND OR ELEVATED TEMP, #30 TAB 05/06/19 Medications Current Medications Dextrose/Sodium Chloride 1,000 ml @ 100 mls/hr Q10H IV Last administered on 05/06/19at 02:26; Admin Dose 100 MLS/HR; Start 05/06/19 at 01:52 IV Flush (NS 3 ml) 3 ml PER PROTOCOL IV ; Start 05/06/19 at 02:00 Ondansetron HCl (Zofran Inj) 4 mg Q6H PRN IV NAUSEA/VOMITING; Start 05/06/19 at 02:00 Morphine Sulfate (morphine) 2 mg Q4H PRN IV .SEVERE PAIN 7-10; Start 05/06/19 at 02:00 Pantoprazole (Protonix Iv) 40 mg DAILY@06 IV Last administered on 05/06/19at 05:45; Admin Dose 40 MG; Start 05/06/19 at 06:00 Albuterol/ Ipratropium (Duoneb) 3 ml Q2H RESP THERAPY PRN HHN SHORTNESS OF BREATH; Start 05/06/19 at 02:00 Ferrous Sulfate (Ferrous Sulfate (Ec)) 325 mg TID PO ; Start 05/06/19 at 09:00 Acetaminophen (Tylenol Tab) 650 mg Q6H PRN PEG MILD PAIN(1-3)OR ELEVATED TEMP; Start 05/06/19 at 02:00 Ascorbic Acid (Vitamin C) 500 mg DAILY GTB Last administered on 05/06/19at 09:10; Admin Dose 500 MG; Start 05/06/19 at 09:00 Eye Lubricant (Refresh Plus) 1 drop QID PRN BOTH EYES DRY EYES; Start 05/06/19 at 03:30 Cyanocobalamin (Vitamin B12) 1,000 mcg DAILY GTB Last administered on 05/06/19at 09:10; Admin Dose 1,000 MCG; Start 05/06/19 at 09:00 Fluticasone Propionate (Flonase 0.05% Nasal) 2 spray DAILY PRN NASAL ALLERGIC REACTION; Start 05/06/19 at 03:30 Multivitamins (Multivitamin) 30 ml DAILY GTB Last administered on 05/06/19at 09:10; Admin Dose 30 ML; Start 05/06/19 at 09:00 Tetrahydrozoline HCl (Geneyes Oph) 1 drop Q8 PRN BOTH EYES DRY EYES; Start 05/06/19 at 03:30 Phenol (Chloraseptic Throat [place]) 3 spray Q3H PRN MT SORE THROAT; Start 05/06/19 at 06:30 Allergies: Coded Allergies: No Known Allergy (Unverified , 05/06/19) Social History Smoking Status: Never smoker Exam/Review of Systems Exam Vitals Past Medical History Home Meds Reported Medications Levalbuterol Hcl* (Levalbuterol Hcl*) 1.25 Mg/3 Ml Vial.neb, 1.25 MG INHALATION Q4 PRN for SHORTNESS OF BREATH, VIAL 05/06/19 Ascorbic Acid (Vitamin C) 500 Mg Tab, 500 MG GTB DAILY, TAB 05/06/19 Cyanocobalamin* (Vitamin B-12*) 1,000 Mcg Tablet.sa, 1000 MCG GTB DAILY, TAB 05/06/19 Tetrahydrozoline Hcl* (Visine*) 0.05% - 15 Ml Drops, 1 DROP BOTH EYES Q8 PRN for DRY EYES, #1 EA 05/06/19 Carboxymethylcellulose Sodium* (Refresh Tears*) 15 Ml Drops, 1 DROP BOTH EYES QID PRN for DRY EYES, #1 EA 05/06/19 Multivitamins* (Theragran*) 1 Tab Tab, 1 TAB GTB DAILY, TAB 05/06/19 Magnesium Oxide* (Magnesium Oxide*) 400 Mg Tablet, 800 MG GTB BID, TAB 05/06/19 Lansoprazole* (Lansoprazole*) 15 Mg Capsule.dr, 5 ML GTB AC BREAKFAST, CAP 05/06/19 Fluticasone Propionate (Flonase Allergy Relief) 9.9 Ml [place].susp, 2 SPRAY NASAL DAILY PRN for ALLERGIC REACTION, #1 BOTTLE TO EACH NOSTRIL 05/06/19 Ferrous Sulfate* (Ferrous Sulfate*) 325 Mg Tabec, 325 MG GTB DAILY, TAB 05/06/19 Phenol/Glycerin (Chloraseptic Max [place]) 30 Ml [place], 3 SPRAY MM Q2H PRN for SORE THROAT, #1 BOTTLE 05/06/19 Acetaminophen* (Acetaminophen*) 650 Mg Tablet, 650 MG GTB Q6H PRN for PAIN AND OR ELEVATED TEMP, #30 TAB 05/06/19 Acetaminophen* (Acetaminophen*) 325 Mg Tablet, 325 MG GTB Q4H PRN for PAIN AND OR ELEVATED TEMP, #30 TAB 05/06/19 Medications Current Medications Dextrose/Sodium Chloride 1,000 ml @ 100 mls/hr Q10H IV Last administered on 05/06/19at 20:22; Admin Dose 100 MLS/HR; Start 05/06/19 at 01:52 IV Flush (NS 3 ml) 3 ml PER PROTOCOL IV ; Start 05/06/19 at 02:00 Ondansetron HCl (Zofran Inj) 4 mg Q6H PRN IV NAUSEA/VOMITING; Start 05/06/19 at 02:00 Morphine Sulfate (morphine) 2 mg Q4H PRN IV .SEVERE PAIN 7-10; Start 05/06/19 at 02:00 Pantoprazole (Protonix Iv) 40 mg DAILY@06 IV Last administered on 05/06/19at 05:45; Admin Dose 40 MG; Start 05/06/19 at 06:00 Albuterol/ Ipratropium (Duoneb) 3 ml Q2H RESP THERAPY PRN HHN SHORTNESS OF BR EATH; Start 05/06/19 at 02:00 Acetaminophen (Tylenol Tab) 650 mg Q6H PRN PEG MILD PAIN(1-3)OR ELEVATED TEMP; Start 05/06/19 at 02:00 Ascorbic Acid (Vitamin C) 500 mg DAILY GTB Last administered on 05/06/19at 09:10; Admin Dose 500 MG; Start 05/06/19 at 09:00 Eye Lubricant (Refresh Plus) 1 drop QID PRN BOTH EYES DRY EYES; Start 05/06/19 at 03:30 Cyanocobalamin (Vitamin B12) 1,000 mcg DAILY GTB Last administered on 05/06/19at 09:10; Admin Dose 1,000 MCG; Start 05/06/19 at 09:00 Fluticasone Propionate (Flonase 0.05% Nasal) 2 spray DAILY PRN NASAL ALLERGIC REACTION; Start 05/06/19 at 03:30 Multivitamins (Multivitamin) 30 ml DAILY GTB Last administered on 05/06/19at 09:10; Admin Dose 30 ML; Start 05/06/19 at 09:00 Tetrahydrozoline HCl (Geneyes Oph) 1 drop Q8 PRN BOTH EYES DRY EYES; Start at 03:30 Phenol (Chloraseptic Throat [place]) 3 spray Q3H PRN MT SORE THROAT; Start 05/06/19 at 06:30 Ferric Sodium Gluconate Complex 125 mg/Sodium Chloride 110 ml @ 110 mls/hr DAILY@1300 IVPB ; Start 05/07/19 at 13:00; Stop 05/11/19 at 13:59 Allergies: Coded Allergies: No Known Allergy (Unverified , 05/06/19) Social History Smoking Status: Never smoker Exam/Review of Systems Exam Vitals Vital Signs Date Temp Pulse Resp B/P (MAP) Pulse Ox O2 O2 Flow FiO2 Time Delivery Rate 05/06/19 98.5 21:36 05/06/19 89 18 107/54 97 21:08 (71) Intake and Output 05/05/19 05/05/19 05/06/19 1515:00 23:00 07:00 IntakeIntake Total 300 ml BalanceBalance 300 ml Exam Exam PHYSICAL EXAMINATION: GENERAL: WEAK, DOESN'T WANT TO TALK, IN THE BED, Alert & oriented, in no acute distress, THIN COMPLETION SKIN: Midline abd scar from previous abd surgery HEAD: Normocephalic, atraumatic, no tenderness. EYES: Pupils equal reactive to light and accommodation, no discharge. EARS/NOSE AND THROAT: Ears normal, nose normal NECK: Supple, no masses, thyroid normal CHEST: Inspection within normal limits. CARDIOVASCULAR: Heart: Regular rate and rhythm RESPIRATORY: Lungs clear to auscultation, no rubs GASTROINTESTINAL AND LIVER: Abdomen: Soft, non tenderness, J-tube, ileostomy, non-distended, no hernias, no masses, no organomegaly, no ascites, no guarding, no rebound tenderness, normoactive bowel sounds. Rectal: Deferred. Results Result Diagram: 05/06/19 0605 05/06/19 0605 Results 24hrs Laboratory Tests Test 05/06/19 06:05 05/06/19 11:10 White Blood Count 8.7 Red Blood Count 3.48 L Hemoglobin 7.0 L Hematocrit 24.6 L Mean Corpuscular Volume 70.7 L Mean Corpuscular Hemoglobin 20.1 L Mean Corpuscular Hemoglobin Concent 28.5 L Red Cell Distribution Width 18.6 H Platelet Count 667 H Mean Platelet Volume 8.6 Immature Granulocytes % 0.700 H Neutrophils % 71.7 Segmented Neutrophils % (Manual) 69 Band Neutrophils % (Manual) 5 H Lymphocytes % 17.8 Lymphocytes % (Manual) 19 Reactive Lymphocytes % (Manual) 1 H Monocytes % 8.1 Monocytes % (Manual) 1 Eosinophils % 0.9 Eosinophils % (Manual) 2 Basophils % 0.8 Basophils % (Manual) 3 H Nucleated Red Blood Cells % 0.0 Immature Granulocytes # 0.060 H Neutrophils # 6.2 Neutrophils # (Manual) 6.0 Band Neutrophils # 0.4 Lymphocytes (Manual) 1.6 Lymphocytes # 1.6 Reactive Lymphocytes # 0.0 Monocytes # 0.7 Monocytes # (Manual) 0.0 L Eosinophils # 0.1 Basophils # 0.1 Basophils # (Manual) 0.2 H Nucleated Red Blood Cells # 0.0 Platelet Estimate INCREASED Giant Platelets 4 H Polychromasia 3+ Poikilocytosis 1+ Anisocytosis 2+ Macrocytosis 1+ Sodium Level 138 Potassium Level 3.9 Chloride Level 103 Carbon Dioxide Level 26 Anion Gap 9 Blood Urea Nitrogen 10 Creatinine 0.71 Est Glomerular Filtrat Rate mL/min > 60 Glucose Level 112 Hemoglobin A1c 6.0 H Calcium Level 9.2 Phosphorus Level 4.4 Magnesium Level 1.7 Iron Level 11 L Total Iron Binding Capacity 226 L Percent Iron Saturation 5 L Ferritin 177.0 Total Bilirubin 0.3 Direct Bilirubin 0.00 Indirect Bilirubin 0.3 Aspartate Amino Transf (AST/SGOT) 22 Alanine Aminotransferase (ALT/SGPT) 18 Alkaline Phosphatase 249 H Lactate Dehydrogenase 388 Total Protein 7.1 Albumin 3.0 L Globulin 4.10 H Albumin/Globulin Ratio 0.73 Triglycerides Level 109 Cholesterol Level 123 LDL Cholesterol, Calculated 65 HDL Cholesterol 36 Cholesterol/HDL Ratio 3.4 Vitamin B12 Level 963 H Folate 7.5 Thyroid Stimulating Hormone (TSH) 1.180 Stool Occult Blood POSITIVE Imaging Imaging PROCEDURE: CT Abdomen and Pelvis without contrast. CLINICAL INDICATION: Abdominal pelvic pain. Gastric cancer. TECHNIQUE: CT scan of the abdomen and pelvis without contrast was performed on a multi-detector high-resolution CT scanner. The patient was scanned without IV contrast. Coronal and sagittal reformatted images were obtained from the axial source images. DICOM images are available. CTDI equals 13.12 mGy, and DLP equals 818.19 mGy-cm. One or more of the following dose reduction techniques were used: - Automated exposure control. - Adjustment of the mA and/or kV according to patient size. - Use of iterative reconstruction technique. COMPARISON: None. FINDINGS: Evaluation is limited due to lack of IV contrast. Lower thorax: Minor atelectasis in the right lung base. Liver: Multiple (>5) scattered masses consistent with diffuse metastatic disease. The largest mass lesion is identified within the posteromedial right lobe measuring 5.8 cm in maximal dimension. Biliary: Small layering gallstones. No biliary dilatation. Pancreas: Normal. Spleen: Normal. Adrenal Glands: Normal. Genitourinary: Normal. Gastrointestinal: Percutaneous J-tube in the LUQ of the abdomen. Postsurgical changes of the stomach from previous partial gastrectomy with gastrojejunostomy. Anterolateral mid abdominal ileostomy, chronic. Lymph nodes: Calcified lymph node/nodule in the mila hepatis region measuring 3.0 x 2.4 cm in dimension, presumably neoplastic. Vascular: Normal. Peritoneum/mesentery: Poorly defined mass lesion in the RUQ region measuring approximately 7.5 cm in maximal dimension. This is poorly evaluated on this non- contrast study, yet likely is related to neoplasm. Reproductive organs: Normal. Musculoskeletal: Degenerative spinal enthesopathy. Soft tissues: Old post-surgical wound dehiscence and scarring along the midline anterior abdominal wall. IMPRESSION: 1. Limited evaluation due to lack of IV contrast. 2. Large poorly evaluated mass in the RUQ region adjacent to the liver and pancreas and mila hepatis, presumably secondary to recurrent neoplasm. Further evaluation is warranted. 3. Large calcified lymph node in the mila hepatis region as well, also presumably neoplastic. 4. Numerous diffuse scattered multifocal intrahepatic metastatic disease. 5. Direct LUQ J-tube in place in grossly appropriate location. 6. Right anterolateral mid abdominal ileostomy, uncomplicated. 7. Scattered benign chronic changes seen elsewhere throughout the study. Medications Medication Current Medications Dextrose/Sodium Chloride 1,000 ml @ 100 mls/hr Q10H IV Last administered on 05/06/19at 20:22; Admin Dose 100 MLS/HR; Start 05/06/19 at 01:52 IV Flush (NS 3 ml) 3 ml PER PROTOCOL IV ; Start 05/06/19 at 02:00 Ondansetron HCl (Zofran Inj) 4 mg Q6H PRN IV NAUSEA/VOMITING; Start 05/06/19 at 02:00 Morphine Sulfate (morphine) 2 mg Q4H PRN IV .SEVERE PAIN 7-10; Start 05/06/19 at 02:00 Pantoprazole (Protonix Iv) 40 mg DAILY@06 IV Last administered on 05/06/19at 05:45; Admin Dose 40 MG; Start 05/06/19 at 06:00 Albuterol/ Ipratropium (Duoneb) 3 ml Q2H RESP THERAPY PRN HHN SHORTNESS OF BREATH; Start 05/06/19 at 02:00 Acetaminophen (Tylenol Tab) 650 mg Q6H PRN PEG MILD PAIN(1-3)OR ELEVATED TEMP; Start 05/06/19 at 02:00 Ascorbic Acid (Vitamin C) 500 mg DAILY GTB Last administered on 05/06/19at 09:10; Admin Dose 500 MG; Start 05/06/19 at 09:00 Eye Lubricant (Refresh Plus) 1 drop QID PRN BOTH EYES DRY EYES; Start 05/06/19 at 03:30 Cyanocobalamin (Vitamin B12) 1,000 mcg DAILY GTB Last administered on 05/06/19 09:10; Admin Dose 1,000 MCG; Start 05/06/19 at 09:00 Fluticasone Propionate (Flonase 0.05% Nasal) 2 spray DAILY PRN NASAL ALLERGIC REACTION; Start 05/06/19 at 03:30 Multivitamins (Multivitamin) 30 ml DAILY GTB Last administered on 05/06/19at 09:10; Admin Dose 30 ML; Start 05/06/19 at 09:00 Tetrahydrozoline HCl (Geneyes Oph) 1 drop Q8 PRN BOTH EYES DRY EYES; Start 05/06/19 at 03:30 Phenol (Chloraseptic Throat [place]) 3 spray Q3H PRN MT SORE THROAT; Start 05/06/19 at 06:30 Ferric Sodium Gluconate Complex 125 mg/Sodium Chloride 110 ml @ 110 mls/hr DAILY@1300 IVPB ; Start 05/07/19 at 13:00; Stop 05/11/19 at 13:59 YESSY RICH MD May 06, 2019 23:41
[2019-05-07 03:04] VITALS: BP 124/58; PULSE 74; RESP 16
[2019-05-07] MEDS: DEXTROSE 5%-0.45% NACL 1,000 ML IV SCH ×2 (05:34→17:08)
[2019-05-07] MEDS: PANTOPRAZOLE 40 MG INJ IV SCH (05:34)
[2019-05-07 08:00] VITALS: BP 133/64; PULSE 78; RESP 20
[2019-05-07] MEDS: ASCORBIC ACID 500 MG TAB GTB SCH (09:03)
[2019-05-07] MEDS: CYANOCOBALAMIN 500 MCG TAB GTB SCH (09:03)
[2019-05-07] MEDS: MULTIVITAMINS 30 ML CUP GTB SCH (09:03)
[2019-05-07] MEDS: SOD FERRIC GLUC COMPLX 125 MG in SOD CHLORIDE 0.9% 100 ML IVPB SCH (12:42)
[2019-05-07 14:00] VITALS: BP 132/72; PULSE 64; RESP 20
--- NOTE | 2019-05-07 16:00 | PN ---
Date/Time of Note Date/Time of Note DATE: 05/07/19 TIME: 15:28 Assessment/Plan VTE Prophylaxis Risk score (from [facility]0 risk: 1 SCD applied (from [facility] [place]): Yes Pharmacological prophylaxis: other Pharm contraindication: other Lines/Catheters IV Catheter Type (from [facility] [place] Lock Urinary Cath still in place: No Assessment/Plan Assessment/Plan 1. Iron deficiency anemia, malignancy related and slow GI loss, improving with iv iron, follow up with H/H 2. A large poorly evaluated mass in the right upper quadrant region adjacent to the liver and pancreas and mila hepatis, multiple liver masses, consistent with metastasis, follow up with oncology 3. History of gastric CA status post gastrectomy in 07/16/2018 at [facility] 4. s/p ileostomy 5. J-tube 6. Previous open heart surgery in [place] 17 years ago 7. Chronic encephalopathy 8. Severe malnutrition, dietitian consult Result Diagram: 05/07/19 0559 05/07/19 0559 Results 24hrs Laboratory Tests Test 05/07/19 00:25 05/07/19 05:59 Prothrombin Time 13.3 Prothrombin Time Ratio 1.0 INR International Normalized Ratio 1.00 Activated Partial Thromboplast Time 34.7 White Blood Count 9.4 Red Blood Count 4.06 L Hemoglobin 8.8 #L Hematocrit 29.2 L Mean Corpuscular Volume 71.9 L Mean Corpuscular Hemoglobin 21.7 L Mean Corpuscular Hemoglobin Concent 30.1 L Red Cell Distribution Width 19.0 H Platelet Count 590 H Mean Platelet Volume 8.4 Immature Granulocytes % 0.600 H Neutrophils % 74.8 Lymphocytes % 15.1 Monocytes % 7.9 Eosinophils % 0.7 Basophils % 0.9 Nucleated Red Blood Cells % 0.0 Immature Granulocytes # 0.060 H Neutrophils # 7.0 Lymphocytes # 1.4 Monocytes # 0.7 Eosinophils # 0.1 Basophils # 0.1 Nucleated Red Blood Cells # 0.0 Sodium Level 136 Potassium Level 3.6 Chloride Level 102 Carbon Dioxide Level 25 Anion Gap 9 Blood Urea Nitrogen 8 Creatinine 0.76 Est Glomerular Filtrat Rate mL/min > 60 Glucose Level 108 Calcium Level 9.5 Phosphorus Level 4.4 Magnesium Level 1.7 Carcinoembryonic Antigen 40.7 H Subjective 24 Hr Interval Summary Free Text/Dictation weak, no distress Exam/Review of Systems Exam Vitals Vital Signs Date Temp Pulse Resp B/P (MAP) Pulse Ox O2 O2 Flow FiO2 Time Delivery Rate 05/07/19 98.8 78 20 133/64 96 08:00 (87) Intake and Output 05/06/19 05/06/19 05/07/19 1515:00 23:00 07:00 IntakeIntake Total 1450 ml 1000 ml BalanceBalance 1450 ml 1000 ml Constitutional: alert, oriented, frail Head: normocephalic, atraumatic Eyes: nl conjunctiva, EOMI, nl lids ENMT: nl external ears & nose, nl lips & teeth, nl nasal mucosa & septum Neck: supple, non-tender Respiratory: clear to auscultation, normal air movement; No congested cough, No crackles/rales, No diminished breath sounds, No intercostal retraction, No labored breathing, No respirations, No tactile fremitus, No wheezing, No other Cardiovascular: regular rate and rhythm, nl pulses; No bruits, No diastolic murmur, No edema, No gallop, No irregular rhythm, No jugular venous distention (JVD), No murmurs/extra sounds, No rub, No systolic murmur, No S3, No S4, No other Gastrointestinal: soft, nl liver, spleen Musculoskeletal: nl extremities to inspection Extremities: normal pulses; No calf tenderness, No cyanosis, No clubbing, No edema, No pitting pedal edema, No palpable cord, No tenderness, No other Neurological: 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 II-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 intact, nl mental status Results Results 24hrs Laboratory Tests Test 05/07/19 00:25 05/07/19 05:59 Prothrombin Time 13.3 Prothrombin Time Ratio 1.0 INR International Normalized Ratio 1.00 Activated Partial Thromboplast Time 34.7 White Blood Count 9.4 Red Blood Count 4.06 L Hemoglobin 8.8 #L Hematocrit 29.2 L Mean Corpuscular Volume 71.9 L Mean Corpuscular Hemoglobin 21.7 L Mean Corpuscular Hemoglobin Concent 30.1 L Red Cell Distribution Width 19.0 H Platelet Count 590 H Mean Platelet Volume 8.4 Immature Granulocytes % 0.600 H Neutrophils % 74.8 Lymphocytes % 15.1 Monocytes % 7.9 Eosinophils % 0.7 Basophils % 0.9 Nucleated Red Blood Cells % 0.0 Immature Granulocytes # 0.060 H Neutrophils # 7.0 Lymphocytes # 1.4 Monocytes # 0.7 Eosinophils # 0.1 Basophils # 0.1 Nucleated Red Blood Cells # 0.0 Sodium Level 136 Potassium Level 3.6 Chloride Level 102 Carbon Dioxide Level 25 Anion Gap 9 Blood Urea Nitrogen 8 Creatinine 0.76 Est Glomerular Filtrat Rate mL/min > 60 Glucose Level 108 Calcium Level 9.5 Phosphorus Level 4.4 Magnesium Level 1.7 Carcinoembryonic Antigen 40.7 H Medications Medication Current Medications Dextrose/Sodium Chloride 1,000 ml @ 100 mls/hr Q10H IV Last administered on 05/07/19 05:34; Admin Dose 100 MLS/HR; Start 05/06/19 at 01:52 IV Flush (NS 3 ml) 3 ml PER PROTOCOL IV ; Start 05/06/19 at 02:00 Ondansetron HCl (Zofran Inj) 4 mg Q6H PRN IV NAUSEA/VOMITING; Start 05/06/19 at 02:00 Morphine Sulfate (morphine) 2 mg Q4H PRN IV .SEVERE PAIN 7-10; Start 05/06/19 at 02:00 Pantoprazole (Protonix Iv) 40 mg DAILY@06 IV Last administered on 05/07/19 05:34; Admin Dose 40 MG; Start 05/06/19 at 06:00 Albuterol/ Ipratropium (Duoneb) 3 ml Q2H RESP THERAPY PRN HHN SHORTNESS OF BREATH; Start 05/06/19 at 02:00 Acetaminophen (Tylenol Tab) 650 mg Q6H PRN PEG MILD PAIN(1-3)OR ELEVATED TEMP; Start 05/06/19 at 02:00 Ascorbic Acid (Vitamin C) 500 mg DAILY GTB Last administered on 05/07/19 09: 03; Admin Dose 500 MG; Start 05/06/19 at 09:00 Eye Lubricant (Refresh Plus) 1 drop QID PRN BOTH EYES DRY EYES; Start 05/06/19 at 03:30 Cyanocobalamin (Vitamin B12) 1,000 mcg DAILY GTB Last administered on 05/07/19 09:03; Admin Dose 1,000 MCG; Start 05/06/19 at 09:00 Fluticasone Propionate (Flonase 0.05% Nasal) 2 spray DAILY PRN NASAL ALLERGIC REACTION; Start 05/06/19 at 03:30 Multivitamins (Multivitamin) 30 ml DAILY GTB Last administered on 05/07/19at 09:03; Admin Dose 30 ML; Start 05/06/19 at 09:00 Tetrahydrozoline HCl (Geneyes Oph) 1 drop Q8 PRN BOTH EYES DRY EYES; Start 05/06/19 at 03:30 Phenol (Chloraseptic Throat [place]) 3 spray Q3H PRN MT SORE THROAT; Start 05/06/19 at 06:30 Ferric Sodium Gluconate Complex 125 mg/Sodium Chloride 110 ml @ 110 mls/hr DAILY@1300 IVPB Last administered on 05/07/19at 12:42; Admin Dose 110 MLS/HR; Start 05/07/19 at 13:00; Stop 05/11/19 at 13:59 TENNILLE LUKE MD May 07, 2019 15:39
[2019-05-07 20:00] VITALS: BP 128/58; PULSE 93; RESP 17
--- NOTE | 2019-05-07 22:31 | CONS ---
Assessment/Plan Assessment/Plan Hospital Course (Demo Recall) HX GASTRIC CANCER 2018 , POST SURGERY, CURRENTLY WITH DIFFUSE INTRAABDOMINAL METS hepatic lesions consistent with diffuse metastatic disease Large poorly evaluated mass in the right upper quadrant region adjacent to the liver and pancreas and mila hepatis, possibly secondary to recurrent neoplasm History of gastric CA status post gastrectomy Large calcified lymph node in the mila hepatis region as well, also presumably neoplastic. Numerous diffuse scattered multifocal intrahepatic metastatic disease. OBTAIN RECORD FROM [facility] MEDICAL SUPPORTIVE CA RE D/W IN DETAILS PT NEVER RECEIVED CHEMO IN THE PAST 2 TO [place] POST SURGERY, PROLONGED COMATOSE CONDITION AND POOR PS DOUBT THAT HE WILL BE A GOOD CANDIDATE FOR PALLIATIVE CHEMO D/W IN DETAILS SHE WANT TO BE AGGRESSIVE WITH TREATMENT PT NEED TO BE FOLLOWED BY ONCOLOGIST ON O PANEL - EXPLAINED TO , DIRECTOR OF ENVIRONMENTAL SERVICES CONSULTED ANEMIA, COMPLEX WITH COMPONENT Iron deficiency STOOL OB + GI F-UP IV FE MONITOR BLOOD COUNT CLOSELY OBSERVE FOR BLEEDING AND HEMOLYSIS TRANSFUSE NEEDED Direct LUQ J-tube in place Right anterolateral mid abdominal ileostomy, uncomplicated. Previous abdominal surgery with ileostomy, CAD, POST Previous open heart surgery Chronic encephalopathy Severe malnutrition, dietitian consult Consultation Date/Type/Reason Admit Date/Time May 06, 2019 at 00:13 Initial Consult Date 05/06/19 Type of Consult HEMEONC Requesting Provider: TENNILLE LUKE MD Date/Time of Note DATE: 05/07/19 TIME: 22:27 24 HR Interval Summary Free Text/Dictation ALL NOTED COAGS - N NO BLEEDING BX ORDERED Exam/Review of Systems Exam Vitals Vital Signs Date Temp Pulse Resp B/P (MAP) Pulse Ox O2 O2 Flow FiO2 Time Delivery Rate 05/07/19 98.2 93 17 128/58 96 Room Air 20:00 (81) Intake and Output 05/06/19 05/06/19 05/07/19 1414:59 22:59 06:59 IntakeIntake Total 1450 ml 1000 ml BalanceBalance 1450 ml 1000 ml Exam Constitutional: alert, oriented, frail Head: normocephalic, atraumatic Eyes: nl conjunctiva, EOMI, nl lids ENMT: nl external ears & nose, nl lips & teeth, nl nasal mucosa & septum Neck: supple, non-tender Respiratory: clear to auscultation, normal air movement; No congested cough, No crackles/rales, No diminished breath sounds, No interc ostal retraction, No labored breathing, No respirations, No tactile fremitus, No wheezing, No other Cardiovascular: regular rate and rhythm, nl pulses; No bruits, No diastolic murmur, No edema, No gallop, No irregular rhythm, No jugular venous distention (JVD), No murmurs/extra sounds, No rub, No systolic murmur, No S3, No S4, No other Gastrointestinal: soft, nl liver, spleen Musculoskeletal: nl extremities to inspection Extremities: normal pulses; No calf tenderness, No cyanosis, No clubbing, No edema, No pitting pedal edema, No palpable cord, No tenderness, No other 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, nl mental status Results Result Diagram: 05/07/1955805/07/19558 Results 24hrs Laboratory Tests Test 05/07/19 00:25 05/07/19 05:59 Prothrombin Time 13.3 Prothrombin Time Ratio 1.0 INR International Normalized Ratio 1.00 Activated Partial Thromboplast Time 34.7 White Blood Count 9.4 Red Blood Count 4.06 L Hemoglobin 8.8 #L Hematocrit 29.2 L Mean Corpuscular Volume 71.9 L Mean Corpuscular Hemoglobin 21.7 L Mean Corpuscular Hemoglobin Concent 30.1 L Red Cell Distribution Width 19.0 H Platelet Count 590 H Mean Platelet Volume 8.4 Immature Granulocytes % 0.600 H Neutrophils % 74.8 Lymphocytes % 15.1 Monocytes % 7.9 Eosinophils % 0.7 Basophils % 0.9 Nucleated Red Blood Cells % 0.0 Immature Granulocytes # 0.060 H Neutrophils # 7.0 Lymphocytes # 1.4 Monocytes # 0.7 Eosinophils # 0.1 Basophils # 0.1 Nucleated Red Blood Cells # 0.0 Sodium Level 136 Potassium Level 3.6 Chloride Level 102 Carbon Dioxide Level 25 Anion Gap 9 Blood Urea Nitrogen 8 Creatinine 0.76 Est Glomerular Filtrat Rate mL/min > 60 Glucose Level 108 Calcium Level 9.5 Phosphorus Level 4.4 Magnesium Level 1.7 Carcinoembryonic Antigen 40.7 H Medications Medication Current Medications Dextrose/Sodium Chloride 1,000 ml @ 100 mls/hr Q10H IV Last administered on 05/07/19at 17:08; Admin Dose 100 MLS/HR; Start 05/06/19 at 01:52 IV Flush (NS 3 ml) 3 ml PER PROTOCOL IV ; Start 05/06/19 at 02:00 Ondansetron HCl (Zofran Inj) 4 mg Q6H PRN IV NAUSEA/VOMITING; Start 05/06/19 at 02:00 Morphine Sulfate (morphine) 2 mg Q4H PRN IV .SEVERE PAIN 7-10; Start 05/06/19 at 02:00 Albuterol/ Ipratropium (Duoneb) 3 ml Q2H RESP THERAPY PRN HHN SHORTNESS OF BREATH; Start 05/06/19 at 02:00 Acetaminophen (Tylenol Tab) 650 mg Q6H PRN PEG MILD PAIN(1-3)OR ELEVATED TEMP; Start 05/06/19 at 02:00 Ascorbic Acid (Vitamin C) 500 mg DAILY GTB Last administered on 05/07/19at 09:03; Admin Dose 500 MG; Start 05/06/19 at 09:00 Eye Lubricant (Refresh Plus) 1 drop QID PRN BOTH EYES DRY EYES; Start 05/06/19 at 03:30 Cyanocobalamin (Vitamin B12) 1,000 mcg DAILY GTB Last administered on 05/07/19 09:03; Admin Dose 1,000 MCG; Start 05/06/19 at 09:00 Fluticasone Propionate (Flonase 0.05% Nasal) 2 spray DAILY PRN NASAL ALLERGIC REACTION; Start 05/06/19 at 03:30 Multivitamins (Multivitamin) 30 ml DAILY GTB Last administered on 05/07/19at 09:03; Admin Dose 30 ML; Start 05/06/19 at 09:00 Tetrahydrozoline HCl (Geneyes Oph) 1 drop Q8 PRN BOTH EYES DRY EYES; Start 05/06/19 at 03:30 Phenol (Chloraseptic Throat [place]) 3 spray Q3H PRN MT SORE THROAT; Start 05/06/19 at 06:30 Ferric Sodium Gluconate Complex 125 mg/Sodium Chloride 110 ml @ 110 mls/hr DAILY@1300 IVPB Last administered on 05/07/19at 12:42; Admin Dose 110 MLS/HR; Start 05/07/19 at 13:00; Stop 05/11/19 at 13:59 Lansoprazole (Prevacid) 30 mg DAILY@06 GTB ; Start 05/08/19 at 06:00 YESSY RICH MD May 07, 2019 22:31
[2019-05-08 02:00] VITALS: BP 133/67; PULSE 88; RESP 17
[2019-05-08] MEDS: DEXTROSE 5%-0.45% NACL 1,000 ML IV SCH ×3 (03:55→17:06)
[2019-05-08] MEDS: LANSOPRAZOLE 30 MG CAP GTB SCH (06:10)
[2019-05-08 08:23] VITALS: BP 135/65; PULSE 81; RESP 20
[2019-05-08] MEDS: CYANOCOBALAMIN 500 MCG TAB GTB SCH (08:40)
[2019-05-08] MEDS: ASCORBIC ACID 500 MG TAB GTB SCH (08:40)
[2019-05-08] MEDS: MULTIVITAMINS 30 ML CUP GTB SCH (08:40)
--- NOTE | 2019-05-08 11:32 | PN ---
Date/Time of Note Date/Time of Note DATE: 05/08/19 TIME: 11:28 Assessment/Plan VTE [place] [facility] [place]: 7 SCD applied (from Ns): Yes Pharmacological prophylaxis: other (scds) Lines/Catheters [facility] (from [facility] Saline Lock Urinary Cath still in place: No Assessment/Plan Hospital Course Summary Assessment and Plan: Assessment: Iron deficiency anemia Double hepatic lesions consistent with diffuse metastatic disease Large poorly evaluated mass in the right upper quadrant region adjacent to the liver and pancreas and mila hepatis, personally secondary to recurrent neoplasm History of gastric CA status post gastrectomy Previous abdominal surgery with ileostomy, Previous open heart surgery Chronic encephalopathy Plan: Endoscopic evaluation was offered currently declined at this time. BX pending work-up per oncology GI will sign off but will be available upon reconsult as needed Continue supportive care Further recommendations based on clinical course Patient seen in collaboration Dr. Nixon Subjective: Course reviewed with nursing staff Patient interviewed and examined All labs, imaging and other results reviewed The patient appears comfortable, awaiting for bx of mass today at bedside. No over night events, no overt signs of GI bleed Exam PHYSICAL EXAMINATION: GENERAL: Awake, alert male SKIN: Midline abd scar from previous abd surgery HEAD: Normocephalic, atraumatic, no tenderness. EYES: Pupils equal reactive to light and accommodation, no discharge. EARS/NOSE AND THROAT: Ears normal, nose normal NECK: Supple, no masses, thyroid normal CHEST: Inspection within normal limits. CARDIOVASCULAR: Heart: Regular rate and rhythm RESPIRATORY: Lungs clear to auscultation, no rubs GASTROINTESTINAL AND LIVER: Abdomen: Soft, non tenderness, J-tube, ileostomy, non-distended, no hernias, no masses, no organomegaly, no ascites, no guarding, no rebound tenderness, normoactive bowel sounds. Rectal: Deferred. Result Diagram: 05/08/19 0501 05/08/19 0501 Results 24hrs Laboratory Tests Test 05/08/19 05:01 White Blood Count 10.0 Red Blood Count 4.03 L Hemoglobin 8.9 L Hematocrit 29.5 L Mean Corpuscular Volume 73.2 L Mean Corpuscular Hemoglobin 22.1 L Mean Corpuscular Hemoglobin Concent 30.2 L Red Cell Distribution Width 19.2 H Platelet Count 616 H Mean Platelet Volume 8.6 Immature Granulocytes % 0.500 H Neutrophils % 76.4 Lymphocytes % 14.0 L Monocytes % 7.8 Eosinophils % 0.8 Basophils % 0.5 Nucleated Red Blood Cells % 0.0 Immature Granulocytes # 0.050 H Neutrophils # 7.7 H Lymphocytes # 1.4 Monocytes # 0.8 Eosinophils # 0.1 Basophils # 0.1 Nucleated Red Blood Cells # 0.0 Sodium Level 138 Potassium Level 4.0 Chloride Level 104 Carbon Dioxide Level 26 Anion Gap 8 Blood Urea Nitrogen 6 L Creatinine 0.81 Est Glomerular Filtrat Rate mL/min > 60 Glucose Level 109 Calcium Level 9.0 Exam/Review of Systems Exam Vitals Vital Signs Date Temp Pulse Resp B/P (MAP) Pulse Ox O2 O2 Flow FiO2 Time Delivery Rate 05/08/19 98.2 81 20 135/65 96 08:23 (88) 05/08/19 Room Air 02:00 Intake and Output 05/07/19 05/07/19 05/08/19 1515:00 23:00 07:00 IntakeIntake Total 110 ml 950 ml OutputOutput Total 450 ml BalanceBalance 110 ml 950 ml -450 ml Results Results 24hrs Laboratory Tests Test 05/08/19 05:01 White Blood Count 10.0 Red Blood Count 4.03 L Hemoglobin 8.9 L Hematocrit 29.5 L Mean Corpuscular Volume 73.2 L Mean Corpuscular Hemoglobin 22.1 L Mean Corpuscular Hemoglobin Concent 30.2 L Red Cell Distribution Width 19.2 H Platelet Count 616 H Mean Platelet Volume 8.6 Immature Granulocytes % 0.500 H Neutrophils % 76.4 Lymphocytes % 14.0 L Monocytes % 7.8 Eosinophils % 0.8 Basophils % 0.5 Nucleated Red Blood Cells % 0.0 Immature Granulocytes # 0.050 H Neutrophils # 7.7 H Lymphocytes # 1.4 Monocytes # 0.8 Eosinophils # 0.1 Basophils # 0.1 Nucleated Red Blood Cells # 0.0 Sodium Level 138 Potassium Level 4.0 Chloride Level 104 Carbon Dioxide Level 26 Anion Gap 8 Blood Urea Nitrogen 6 L Creatinine 0.81 Est Glomerular Filtrat Rate mL/min > 60 Glucose Level 109 Calcium Level 9.0 Medications Medication Current Medications Dextrose/Sodium Chloride 1,000 ml @ 100 mls/hr Q10H IV Last administered on 05/08/19at 03:55; Admin Dose 100 MLS/HR; Start 05/06/19 at 01:52 IV Flush (NS 3 ml) 3 ml PER PROTOCOL IV ; Start 05/06/19 at 02:00 Ondansetron HCl (Zofran Inj) 4 mg Q6H PRN IV NAUSEA/VOMITING; Start 05/06/19 at 02:00 Morphine Sulfate (morphine) 2 mg Q4H PRN IV .SEVERE PAIN 7-10; Start 05/06/19 at 02:00 Albuterol/ Ipratropium (Duoneb) 3 ml Q2H RESP THERAPY PRN HHN SHORTNESS OF ANIKA ATH; Start 05/06/19 at 02:00 Acetaminophen (Tylenol Tab) 650 mg Q6H PRN PEG MILD PAIN(1-3)OR ELEVATED TEMP; Start 05/06/19 at 02:00 Ascorbic Acid (Vitamin C) 500 mg DAILY GTB Last administered on 05/08/19at 08:40; Admin Dose 500 MG; Start 05/06/19 at 09:00 Eye Lubricant (Refresh Plus) 1 drop QID PRN BOTH EYES DRY EYES; Start 05/06/19 at 03:30 Cyanocobalamin (Vitamin B12) 1,000 mcg DAILY GTB Last administered on 05/08/19at 08:40; Admin Dose 1,000 MCG; Start 05/06/19 at 09:00 Fluticasone Propionate (Flonase 0.05% Nasal) 2 spray DAILY PRN NASAL ALLERGIC REACTION; Start 05/06/19 at 03:30 Multivitamins (Multivitamin) 30 ml DAILY GTB Last administered on 05/08/19at 08:40; Admin Dose 30 ML; Start 05/06/19 at 09:00 Tetrahydrozoline HCl (Geneyes Oph) 1 drop Q8 PRN BOTH EYES DRY EYES; Start 04/19 06/07 at 03:30 Phenol (Chloraseptic Throat [place]) 3 spray Q3H PRN MT SORE THROAT; Start 05/06/19 at 06:30 Ferric Sodium Gluconate Complex 125 mg/Sodium Chloride 110 ml @ 110 mls/hr DAILY@1300 IVPB Last administered on 05/07/19at 12:42; Admin Dose 110 MLS/HR; Start 05/07/19 at 13:00; Stop 05/11/19 at 13:59 Lansoprazole (Prevacid) 30 mg DAILY@06 GTB Last administered on 05/08/19at 06:10; Admin Dose 30 MG; Start 05/08/19 at 06:00 BRADY JIMENEZ May 08, 2019 11:32
[2019-05-08] MEDS: SOD FERRIC GLUC COMPLX 125 MG in SOD CHLORIDE 0.9% 100 ML IVPB SCH (13:05)
--- NOTE | 2019-05-08 13:09 | CONS ---
Assessment/Plan Assessment/Plan Hospital Course (Demo Recall) HX GASTRIC CANCER 2018 , POST SURGERY, CURRENTLY WITH DIFFUSE INTRAABDOMINAL METS hepatic lesions consistent with diffuse metastatic disease Large poorly evaluated mass in the right upper quadrant region adjacent to the liver and pancreas and mila hepatis, possibly secondary to recurrent neoplasm History of gastric CA status post gastrectomy Large calcified lymph node in the mila hepatis region as well, also presumably neoplastic. Numerous diffuse scattered multifocal intrahepatic metastatic disease. 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 Previous abdominal surgery with ileostomy, CAD, POST Previous open heart surgery Chronic encephalopathy Severe malnutrition, dietitian consult Consultation Date/Type/Reason Admit Date/Time May 06, 2019 at 00:13 Initial Consult Date 05/06/19 Type of Consult HEMEON Requesting Provider: TENNILLE LUKE MD Date/Time of Note DATE: 05/08/19 TIME: 13:09 24 HR Interval Summary Free Text/Dictation NAD D/W Exam/Review of Systems Exam Vitals Vital Signs Date Temp Pulse Resp B/P (MAP) Pulse Ox O2 O2 Flow FiO2 Time Delivery Rate 05/08/19 98.2 81 20 135/65 96 08:23 (88) 05/08/19 Room Air 02:00 Intake and Output 05/07/19 05/07/19 05/08/19 1515:00 23:00 07:00 IntakeIntake Total 110 ml 950 ml OutputOutput Total 450 ml BalanceBalance 110 ml 950 ml -450 ml Exam Constitutional: alert, oriented, frail Head: normocephalic, atraumatic Eyes: nl conjunctiva, EOMI, nl lids ENMT: nl external ears & nose, nl lips & teeth, nl nasal mucosa & septum Neck: supple, non-tender Respiratory: clear to auscultation, normal air movement; No congested cough, No crackles/rales, No diminished breath sounds, No intercostal retraction, No labored breathing, No respirations, No tactile fremitus, No wheezing, No other Cardiovascular: regular rate and rhythm, nl pulses; No bruits, No diastolic murmur, No edema, No gallop, No irregular rhythm, No jugular venous distention (JVD), No murmurs/extra sounds, No rub, No systolic murmur, No S3, No S4, No other Gastrointestinal: soft, nl liver, spleen Musculoskeletal: nl extremities to inspection Extremities: normal pulses; No calf tenderness, No cyanosis, No clubbing, No edema, No pitting pedal [place] ma, No palpable cord, No tenderness, No other 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, nl mental status Results Result Diagram: 05/08/19 0501 05/08/19 0501 Results 24hrs Laboratory Tests Test 05/08/19 05:01 White Blood Count 10.0 Red Blood Count 4.03 L Hemoglobin 8.9 L Hematocrit 29.5 L Mean Corpuscular Volume 73.2 L Mean Corpuscular Hemoglobin 22.1 L Mean Corpuscular Hemoglobin Concent 30.2 L Red Cell Distribution Width 19.2 H Platelet Count 616 H Mean Platelet Volume 8.6 Immature Granulocytes % 0.500 H Neutrophils % 76.4 Lymphocytes % 14.0 L Monocytes % 7.8 Eosinophils % 0.8 Basophils % 0.5 Nucleated Red Blood Cells % 0.0 Immature Granulocytes # 0.050 H Neutrophils # 7.7 H Lymphocytes # 1.4 Monocytes # 0.8 Eosinophils # 0.1 Basophils # 0.1 Nucleated Red Blood Cells # 0.0 Sodium Level 138 Potassium Level 4.0 Chloride Level 104 Carbon Dioxide Level 26 Anion Gap 8 Blood Urea Nitrogen 6 L Creatinine 0.81 Est Glomerular Filtrat Rate mL/min > 60 Glucose Level 109 Calcium Level 9.0 Medications Medication Current Medications Dextrose/Sodium Chloride 1,000 ml @ 100 mls/hr Q10H IV Last administered on 05/08/19at 03:55; Admin Dose 100 MLS/HR; Start 05/06/19 at 01:52 IV Flush (NS 3 ml) 3 ml PER PROTOCOL IV ; Start 05/06/19 at 02:00 Ondansetron HCl (Zofran Inj) 4 mg Q6H PRN IV NAUSEA/VOMITING; Start 05/06/19 at 02:00 Morphine Sulfate (morphine) 2 mg Q4H PRN IV .SEVERE PAIN 7-10; Start 05/06/19 at 02:00 Albuterol/ Ipratropium (Duoneb) 3 ml Q2H RESP THERAPY PRN HHN SHORTNESS OF BREATH; Start 05/06/19 at 02:00 Acetaminophen (Tylenol Tab) 650 mg Q6H PRN PEG MILD PAIN(1-3)OR ELEVATED TEMP; Start 05/06/19 at 02:00 Ascorbic Acid (Vitamin C) 500 mg DAILY GTB Last administered on 05/08/19 08:40; Admin Dose 500 MG; Start 05/06/19 at 09:00 Eye Lubricant (Refresh Plus) 1 drop QID PRN BOTH EYES DRY EYES; Start 05/06/19 at 03:30 Cyanocobalamin (Vitamin B12) 1,000 mcg DAILY GTB Last administered on 05/08/19 08:40; Admin Dose 1,000 MCG; Start 05/06/19 at 09:00 Fluticasone Propionate (Flonase 0.05% Nasal) 2 spray DAILY PRN NASAL ALLERGIC REACTION; Start 05/06/19 at 03:30 Multivitamins (Multivitamin) 30 ml DAILY GTB Last administered on 05/08/19 08:40; Admin Dose 30 ML; Start 05/06/19 at 09:00 Tetrahydrozoline HCl (Geneyes Oph) 1 drop Q8 PRN BOTH EYES DRY EYES; Start 05/06/19 at 03:30 Phenol (Chloraseptic Throat [place]) 3 spray Q3H PRN MT SORE THROAT; Start 05/06/19 at 06:30 Ferric Sodium Gluconate Complex 125 mg/Sodium Chloride 110 ml @ 110 mls/hr DAILY@1300 IVPB Last administered on 05/08/19at 13:05; Admin Dose 110 MLS/HR; Start 05/07/19 at 13:00; Stop 05/11/19 at 13:59 Lansoprazole (Prevacid) 30 mg DAILY@06 GTB Last administered on 05/08/19 06:10; Admin Dose 30 MG; Start 05/08/19 at 06:00 YESSY RICH MD May 08, 2019 13:09
[2019-05-08 14:34] VITALS: BP 134/72; PULSE 88; RESP 16
--- NOTE | 2019-05-08 14:52 | PN ---
Date/Time of Note Date/Time of Note DATE: 05/08/19 TIME: 14:48 Assessment/Plan VTE Prophylaxis Risk score ([place] [facility] [place] risk: 7 SCD applied (from Ns): Yes Pharmacological prophylaxis: NA/contraindicated Pharm contraindication: bleeding Lines/Catheters [facility]from [facility] Saline Lock Urinary Cath still in place: No Assessment/Plan Problems: (1) Iron deficiency anemia Status: Chronic Comment: Receiving parenteral iron to correct this. Continue with same. Positive response Qualifiers: Iron deficiency anemia type: chronic blood loss Qualified Codes: D50.0 - Iron deficiency anemia secondary to blood loss (chronic) (2) Gastric malignant neoplasm Status: Chronic Comment: Surgery was done in June [address] [facility]. There has only appearance of residual bulky disease. In addition he had a complicated course immediately postoperatively and now has limited functional capacity. The percutaneous biopsy of the mass in the abdomen was placed on hold by radiology will be done in 48 hours. Because this may go ahead and start using his GI tract and we can revisit that on the for the biopsy. If this biopsy is positive then given his limited functional capacity that would significantly thrown to question any potential benefit of any type of chemotherapy or radiation therapy. Qualifiers: Malignant neoplasm of stomach location: unspecified location Qualified Codes: C16.9 - Malignant neoplasm of stomach, unspecified (3) GI bleeding Status: Chronic Comment: Continue with treatment despite blood loss Qualifiers: GI bleed type/associated pathology: unspecified gastrointestinal hemorrhage type Qualified Codes: K92.2 - Gastrointestinal hemorrhage, unspecified (4) Ileostomy in place Status: Chronic Comment: Noted. (5) Encephalopathy chronic Status: Chronic Comment: This has a significant impact on the overall evaluation of his medical care (6) Presence of IVC filter Status: Chronic Comment: Noted. (7) Gastrointestinal tube present Status: Chronic Comment: The reports that despite feeding him at the facility he has been and he still lost 6 kg. Get a go ahead and start him on tube feedings utilizing this tube so at least we can make sure he is got some degree of nutritional competence Result Diagram: 05/08/19 0501 05/08/19 0501 Results 24hrs Laboratory Tests Test 05/08/19 05:01 White Blood Count 10.0 Red Blood Count 4.03 L Hemoglobin 8.9 L Hematocrit 29.5 L Mean Corpuscular Volume 73.2 L Mean Corpuscular Hemoglobin 22.1 L Mean Corpuscular Hemoglobin Concent 30.2 L Red Cell Distribution Width 19.2 H Platelet Count 616 H Mean Platelet Volume 8.6 Immature Granulocytes % 0.500 H Neutrophils % 76.4 Lymphocytes % 14.0 L Monocytes % 7.8 Eosinophils % 0.8 Basophils % 0.5 Nucleated Red Blood Cells % 0.0 Immature Granulocytes # 0.050 H Neutrophils # 7.7 H Lymphocytes # 1.4 Monocytes # 0.8 Eosinophils # 0.1 Basophils # 0.1 Nucleated Red Blood Cells # 0.0 Sodium Level 138 Potassium Level 4.0 Chloride Level 104 Carbon Dioxide Level 26 Anion Gap 8 Blood Urea Nitrogen 6 L Creatinine 0.81 Est Glomerular Filtrat Rate mL/min > 60 Glucose Level 109 Calcium Level 9.0 CC: YESSY RICH MD; MUNDO CARRILLO MD ; Subjective 24 Hr Interval Summary Free Text/Dictation Patient is marginally responsive. Constitutional: no complaints Respiratory: no complaints Exam/Review of Systems Exam Vitals Vital Signs Date Temp Pulse Resp B/P (MAP) Pulse Ox O2 O2 Flow FiO2 Time Delivery Rate 05/08/19 98.0 88 16 134/72 98 14:34 (92) 05/08/19 Room Air 02:00 Intake and Output 05/07/19 05/07/19 05/08/19 1515:00 23:00 07:00 IntakeIntake Total 110 ml 950 ml OutputOutput Total 450 ml BalanceBalance 110 ml 950 ml -450 ml Exam Oriented to self, not to place time or situation Constitutional: alert Neck: supple, non-tender Respiratory: clear to auscultation, normal air movement Cardiovascular: regular rate and rhythm, nl pulses Gastrointestinal: soft, other (G-tube in place right upper quadrant mass) Extremities: normal pulses Results Results 24hrs Laboratory Tests Test 05/08/19 05:01 White Blood Count 10.0 Red Blood Count 4.03 L Hemoglobin 8.9 L Hematocrit 29.5 L Mean Corpuscular Volume 73.2 L Mean Corpuscular Hemoglobin 22.1 L Mean Corpuscular Hemoglobin Concent 30.2 L Red Cell Distribution Width 19.2 H Platelet Count 616 H Mean Platelet Volume 8.6 Immature Granulocytes % 0.500 H Neutrophils % 76.4 Lymphocytes % 14.0 L Monocytes % 7.8 Eosinophils % 0.8 Basophils % 0.5 Nucleated Red Blood Cells % 0.0 Immature Granulocytes # 0.050 H Neutrophils # 7.7 H Lymphocytes # 1.4 Monocytes # 0.8 Eosinophils # 0.1 Basophils # 0.1 Nucleated Red Blood Cells # 0.0 Sodium Level 138 Potassium Level 4.0 Chloride Level 104 Carbon Dioxide Level 26 Anion Gap 8 Blood Urea Nitrogen 6 L Creatinine 0.81 Est Glomerular Filtrat Rate mL/min > 60 Glucose Level 109 Calcium Level 9.0 Medications Medication Current Medications Dextrose/Sodium Chloride 1,000 ml @ 100 mls/hr Q10H IV Last administered on 05/08/19 03:55; Admin Dose 100 MLS/HR; Start 05/06/19 at 01:52 IV Flush (NS 3 ml) 3 ml PER PROTOCOL IV ; Start 05/06/19 at 02:00 Ondansetron HCl (Zofran Inj) 4 mg Q6H PRN IV NAUSEA/VOMITING; Start 05/06/19 at 02:00 Morphine Sulfate (morphine) 2 mg Q4H PRN IV .SEVERE PAIN 7-10; Start 05/06/19 at 02:00 Albuterol/ Ipratropium (Duoneb) 3 ml Q2H RESP THERAPY PRN HHN SHORTNESS OF BREATH; Start 05/06/19 at 02:00 Acetaminophen (Tylenol Tab) 650 mg Q6H PRN PEG MILD PAIN(1-3)OR ELEVATED TEMP; Start 05/06/19 at 02:00 Ascorbic Acid (Vitamin C) 500 mg DAILY GTB Last administered on 05/08/19 08:40; Admin Dose 500 MG; Start 05/06/19 at 09:00 Eye Lubricant (Refresh Plus) 1 drop QID PRN BOTH EYES DRY EYES; Start 05/06/19 at 03:30 Cyanocobalamin (Vitamin B12) 1,000 mcg DAILY GTB Last administered on 05/08/19 08:40; Admin Dose 1,000 MCG; Start 05/06/19 at 09:00 Fluticasone Propionate (Flonase 0.05% Nasal) 2 spray DAILY PRN NASAL ALLERGIC REACTION; Start 05/06/19 at 03:30 Multivitamins (Multivitamin) 30 ml DAILY GTB Last administered on 7/20/19at 08:40; Admin Dose 30 ML; Start 05/06/19 at 09:00 Tetrahydrozoline HCl (Geneyes Oph) 1 drop Q8 PRN BOTH EYES DRY EYES; Start 05/06/19 at 03:30 Phenol (Chloraseptic Throat [place]) 3 spray Q3H PRN MT SORE THROAT; Start 05/06/19 at 06:30 Ferric Sodium Gluconate Complex 125 mg/Sodium Chloride 110 ml @ 110 mls/hr DAILY@1300 IVPB Last administered on 05/08/19at 13:05; Admin Dose 110 MLS/HR; Start 05/07/19 at 13:00; Stop 05/11/19 at 13:59 Lansoprazole (Prevacid) 30 mg DAILY@06 GTB Last administered on 05/08/19at 06:10; Admin Dose 30 MG; Start 05/08/19 at 06:00 SATHISH WEBSTER MD May 08, 2019 14:52
[2019-05-08 19:50] VITALS: BP 124/63; PULSE 89; RESP 18
[2019-05-09 02:00] VITALS: BP 130/65; PULSE 90; RESP 18
[2019-05-09] MEDS: LANSOPRAZOLE 30 MG CAP GTB SCH (05:18)
[2019-05-09] MEDS: MULTIVITAMINS 30 ML CUP GTB SCH (08:17)
[2019-05-09] MEDS: ASCORBIC ACID 500 MG TAB GTB SCH (08:18)
[2019-05-09] MEDS: CYANOCOBALAMIN 500 MCG TAB GTB SCH (08:18)
[2019-05-09 08:20] VITALS: BP 138/65; PULSE 97; RESP 19
--- NOTE | 2019-05-09 10:49 | PN ---
Date/Time of Note Date/Time of Note DATE: 05/09/19 TIME: 10:46 Assessment/Plan VTE Prophylaxis Risk score (from [facility])>0 risk: 8 SCD applied (from [facility]): Yes Pharmacological prophylaxis: heparin Pharm contraindication: bleeding Lines/Catheters IV [facility] (from [facility] Peripheral IV Urinary Cath still in place: No Assessment/Plan Problems: (1) Abdominal mass Status: Chronic Comment: Pending biopsy at this time. As stated previously if this turns out to be a malignancy has one would assume this would have a profoundly negative impact on the assessment about what he can tolerate and what expectations can be had from on aggressive chemotherapeutic regimen. Qualifiers: Abdominal location: right upper quadrant Qualified Codes: R19.01 - Right upper quadrant abdominal swelling, mass and lump (2) Gastric malignant neoplasm Status: Chronic Comment: As above. 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 Comment: Unchanged (6) Iron deficiency anemia Status: Chronic Comment: Receiving parenteral replacement Qualifiers: Iron deficiency anemia type: chronic blood loss Qualified Codes: D50.0 - Iron deficiency anemia secondary to blood loss (chronic) Result Diagram: 05/08/19 0501 05/08/19 0501 Results 24hrs Laboratory Tests Test 05/09/19 05:51 Lab Scanned Report BLOOD TRANSFUSION Subjective 24 Hr Interval Summary Free Text/Dictation Patient is nonverbal which is consistent Subjective hx not possible: pt non-verbal Exam/Review of Systems Exam Vitals Vital Signs Date Temp Pulse Resp B/P (MAP) Pulse Ox O2 O2 Flow FiO2 Time Delivery Rate 05/09/19 97.8 97 19 138/65 97 Room Air 08:20 (89) Intake and Output 05/08/19 05/08/19 05/09/19 1515:00 23:00 07:00 IntakeIntake Total 510 ml 720 ml 1580 ml BalanceBalance 510 ml 720 ml 1580 ml Constitutional: non-verbal Neck: supple, non-tender Respiratory: clear to auscultation, normal air movement Cardiovascular: regular rate and rhythm, nl pulses Gastrointestinal: soft, nl liver, spleen, other (Receiving tube feedings via G-tube, mass is still present) Results Results 24hrs Laboratory Tests Test 05/09/19 05:51 Lab Scanned Report BLOOD TRANSFUSION Medications Medication Current Medications IV Flush (NS 3 ml) 3 ml PER PROTOCOL IV ; Start 05/06/19 at 02:00 Ondansetron HCl (Zofran Inj) 4 mg Q6H PRN IV NAUSEA/VOMITING; Start 05/06/19 at 02:00 Morphine Sulfate (morphine) 2 mg Q4H PRN IV .SEVERE PAIN 7-10; Start 05/06/19 at 02:00 Albuterol/ Ipratropium (Duoneb) 3 ml Q2H RESP THERAPY PRN HHN SHORTNESS OF BR EATH; Start 05/06/19 at 02:00 Acetaminophen (Tylenol Tab) 650 mg Q6H PRN PEG MILD PAIN(1-3)OR ELEVATED TEMP; Start 05/06/19 at 02:00 Ascorbic Acid (Vitamin C) 500 mg DAILY GTB Last administered on 05/09/19at 08:18; Admin Dose 500 MG; Start 05/06/19 at 09:00 Eye Lubricant (Refresh Plus) 1 drop QID PRN BOTH EYES DRY EYES; Start 05/06/19 at 03:30 Cyanocobalamin (Vitamin B12) 1,000 mcg DAILY GTB Last administered on 05/09/19at 08:18; Admin Dose 1,000 MCG; Start 05/06/19 at 09:00 Fluticasone Propionate (Flonase 0.05% Nasal) 2 spray DAILY PRN NASAL ALLERGIC REACTION; Start 05/06/19 at 03:30 Multivitamins (Multivitamin) 30 ml DAILY GTB Last administered on 05/09/19at 08:17; Admin Dose 30 ML; Start 05/06/19 at 09:00 Tetrahydrozoline HCl (Geneyes Oph) 1 drop Q8 PRN BOTH EYES DRY EYES; Start at 03:30 Phenol (Chloraseptic Throat [place]) 3 spray Q3H PRN MT SORE THROAT; Start 05/06/19 at 06:30 Ferric Sodium Gluconate Complex 125 mg/Sodium Chloride 110 ml @ 110 mls/hr DAILY@1300 IVPB Last administered on 05/08/19at 13:05; Admin Dose 110 MLS/HR; Start 05/07/19 at 13:00; Stop 05/11/19 at 13:59 Lansoprazole (Prevacid) 30 mg DAILY@06 GTB Last administered on 05/09/19at 05:18; Admin Dose 30 MG; Start 05/08/19 at 06:00 SATHISH WEBSTER MD May 09, 2019 10:49
[2019-05-09] MEDS: SOD FERRIC GLUC COMPLX 125 MG in SOD CHLORIDE 0.9% 100 ML IVPB SCH (12:13)
[2019-05-09 14:00] VITALS: BP 116/59; PULSE 87; RESP 19
[2019-05-09 20:00] VITALS: BP 128/59; PULSE 84; RESP 17
--- NOTE | 2019-05-09 21:34 | CONS ---
Assessment/Plan Assessment/Plan Hospital Course (Demo Recall) HX GASTRIC CANCER 2018 , POST SURGERY, CURRENTLY WITH DIFFUSE INTRAABDOMINAL METS hepatic lesions consistent with diffuse metastatic disease Large poorly evaluated mass in the right upper quadrant region adjacent to the liver and pancreas and mila hepatis, possibly secondary to recurrent neoplasm History of gastric CA status post gastrectomy Large calcified lymph node in the mila hepatis region as well, also presumably neoplastic. Numerous diffuse scattered multifocal intrahepatic metastatic disease. RECORD FROM [facility]-P MEDICAL SUPPORTIVE CARE D/W IN DETAILS PT NEVER RECEIVED CHEMO IN THE PAST 2 TO [place] POST SURGERY, PROLONGED COMATOSE CONDITION AND POOR PS DOUBT THAT HE WILL BE A GOOD CANDIDATE FOR PALLIATIVE CHEMO SHE WANT TO BE AGGRESSIVE WITH TREATMENT PT NEED TO BE FOLLOWED BY ONCOLOGIST ON O PANEL - EXPLAINED TO , THERMOMETER PRODUCTION WORKER CONSULTED bx ordered ANEMIA, COMPLEX WITH COMPONENT Iron deficiency STOOL OB + GI F-UP IV FE MONITOR BLOOD COUNT CLOSELY OBSERVE FOR BLEEDING AND HEMOLYSIS TRANSFUSE NEEDED Direct LUQ J-tube in place Right anterolateral mid abdominal ileostomy, uncomplicated. Previous abdominal surgery with ileostomy, CAD, POST Previous open heart surgery Chronic encephalopathy Severe malnutrition, dietitian consult Consultation Date/Type/Reason Admit Date/Time May 06, 2019 at 00:13 Initial Consult Date 05/06/19 Type of Consult HEMEON Requesting Provider: TENNILLE LUKE MD Date/Time of Note DATE: 05/09/19 TIME: 21:33 24 HR Interval Summary Free Text/Dictation all noted d/w Exam/Review of Systems Exam Vitals Vital Signs Date Temp Pulse Resp B/P (MAP) Pulse Ox O2 O2 Flow FiO2 Time Delivery Rate 05/09/19 99.0 84 17 128/59 97 20:00 (82) 05/09/19 Room Air 14:00 Intake and Output 05/08/19 05/08/19 05/09/19 1515:00 23:00 07:00 IntakeIntake Total 510 ml 720 ml 1580 ml BalanceBalance 510 ml 720 ml 1580 ml Exam Constitutional: alert, oriented, frail Head: normocephalic, atraumatic Eyes: nl conjunctiva, EOMI, nl lids ENMT: nl external ears & nose, nl lips & teeth, nl nasal mucosa & septum Neck: supple, non-tender Respiratory: clear to auscultation, normal air movement; No congested cough, No crackles/rales, No diminished breath sounds, No intercostal retraction, No labored breathing, No respirations, No tactile fremitus, No wheezing, No other Cardiovascular: regular rate and rhythm, nl pulses; No bruits, No diastolic murmur, No edema, No gallop, No irregular rhythm, No jugular venous distention (JVD), No murmurs/extra sounds, No rub, No systolic murmur, No S3, No S4, No other Gastrointestinal: soft, nl liver, spleen Musculoskeletal: nl extremities to inspection Extremities: normal pulses; No calf tenderness, No cyanosis, No clubbing, No edema, No pitting pedal edema, No palpable cord, No tenderness, No other Neurological: WATER/WASTEWATER ENGINEER II-XII intact, nl mental status Results Result Diagram: 05/08/19 0501 05/08/19 0501 Results 24hrs Laboratory Tests Test 05/09/19 05:51 Lab Scanned Report BLOOD TRANSFUSION Medications Medication Current Medications IV Flush (NS 3 ml) 3 ml PER PROTOCOL IV ; Start 05/06/19 at 02:00 Ondansetron HCl (Zofran Inj) 4 mg Q6H PRN IV NAUSEA/VOMITING; Start 05/06/19 at 02:00 Morphine Sulfate (morphine) 2 mg Q4H PRN IV .SEVERE PAIN 7-10; Start 05/06/19 at 02:00 Albuterol/ Ipratropium (Duoneb) 3 ml Q2H RESP THERAPY PRN HHN SHORTNESS OF BREATH; Start 05/06/19 at 02:00 Acetaminophen (Tylenol Tab) 650 mg Q6H PRN PEG MILD PAIN(1-3)OR ELEVATED TEMP; Start 05/06/19 at 02:00 Ascorbic Acid (Vitamin C) 500 mg DAILY GTB Last administered on 05/09/19at 08:18; Admin Dose 500 MG; Start 05/06/19 at 09:00 Eye Lubricant (Refresh Plus) 1 drop QID PRN BOTH EYES DRY EYES; Start 05/06/19 at 03:30 Cyanocobalamin (Vitamin B12) 1,000 mcg DAILY GTB Last administered on 05/09/19at 08:18; Admin Dose 1,000 MCG; Start 05/06/19 at 09:00 Fluticasone Propionate (Flonase 0.05% Nasal) 2 spray DAILY PRN NASAL ALLERGIC REACTION; Start 05/06/19 at 03:30 Multivitamins (Multivitamin) 30 ml DAILY GTB Last administered on 05/09/19at 08:17; Admin Dose 30 ML; Start 05/06/19 at 09:00 Tetrahydrozoline HCl (Geneyes Oph) 1 drop Q8 PRN BOTH EYES DRY EYES; Start 05/06/19 at 03:30 Phenol (Chloraseptic Throat [place]) 3 spray Q3H PRN MT SORE THROAT; Start 05/06/19 at 06:30 Ferric Sodium Gluconate Complex 125 mg/Sodium Chloride 110 ml @ 110 mls/hr DAILY@1300 IVPB Last administered on 05/09/19at 12:13; Admin Dose 110 MLS/HR; Start 05/07/19 at 13:00; Stop 05/11/19 at 13:59 Lansoprazole (Prevacid) 30 mg DAILY@06 GTB Last administered on 05/09/19at 05:18; Admin Dose 30 MG; Start 05/08/19 at 06:00 YESSY RICH MD May 09, 2019 21:34
[2019-05-09] MEDS: DEXTROSE 5%-0.45% NACL 1,000 ML IV SCH (23:47)
[2019-05-10] VITALS (11 sets, daily range): BP systolic 95–118; BP diastolic 46–66; PULSE 71–93; RESP 14–22
[2019-05-10] MEDS: LANSOPRAZOLE 30 MG CAP GTB SCH (05:07)
[2019-05-10] MEDS: CYANOCOBALAMIN 500 MCG TAB GTB SCH (09:00)
[2019-05-10] MEDS: ASCORBIC ACID 500 MG TAB GTB SCH (09:00)
[2019-05-10] MEDS: MULTIVITAMINS 30 ML CUP GTB SCH (09:00)
[2019-05-10] MEDS ORDERED: IOHEXOL 350MG/ML 50 ML BTL ONE (09:49)
[2019-05-10] MEDS ORDERED: SOD CHLORIDE 0.9% 100 ML ONE (09:49)
[2019-05-10] MEDS ORDERED: IOHEXOL 100 ML ONE (09:49)
--- NOTE | 2019-05-10 11:25 | PN ---
Date/Time of Note Date/Time of Note DATE: 05/10/19 TIME: 11:24 Assessment/Plan VTE Prophylaxis Risk score (from [facility])>0 risk: 8 SCD applied (from [facility]): Yes Pharmacological prophylaxis: other Pharm contraindication: liver dx Lines/Catheters IV Catheter Type (from [facility]): [place] Urinary Cath still in place: No Assessment/Plan Assessment/Plan 1. A large poorly evaluated mass in the right upper quadrant region adjacent to the liver and pancreas and mila hepatis, multiple liver masses, consistent with metastasis, repeat CT scan and plan for biopsy 2. Iron deficiency anemia, malignancy related and slow GI loss, improving with iv iron, follow up with H/H 3. History of gastric CA status post gastrectomy in 07/16/2018 at [facility] 4. s/p ileostomy 5. J-tube 6. Previous open heart surgery in [facility] 17 years ago 7. Chronic encephalopathy 8. Severe malnutrition, encourage intake Result Diagram: 05/08/19 0501 05/08/19 0501 Subjective 24 Hr Interval Summary Free Text/Dictation no distress Exam/Review of Systems Exam Vitals Vital Signs Date Temp Pulse Resp B/P (MAP) Pulse Ox O2 O2 Flow FiO2 Time Delivery Rate 05/10/19 98.3 81 16 116/66 97 08:07 (83) 05/09/19 Room Air 14:00 Intake and Output 05/09/19 05/09/19 05/10/19 1515:00 23:00 07:00 IntakeIntake Total 210 ml 100 ml 1550 ml OutputOutput Total 300 ml 200 ml 200 ml BalanceBalance -90 ml -100 ml 1350 ml Constitutional: alert, oriented, frail Head: normocephalic, atraumatic Eyes: nl conjunctiva, EOMI, nl lids, PERRL ENMT: nl external ears & nose, nl lips & teeth, nl nasal mucosa & septum Neck: supple, non-tender Respiratory: clear to auscultation, normal air movement; No congested cough, No crackles/rales, No diminished breath sounds, No intercostal retraction, No labored breathing, No respirations, No tactile fremitus, No wheezing, No other Cardiovascular: regular rate and rhythm, nl pulses Gastrointestinal: soft, mass Musculoskeletal: nl extremities to inspection Neurological: GYNECOLOGICAL ASSISTANT II-XII intact, nl mental status, nl speech Medications Medication Current Medications IV Flush (NS 3 ml) 3 ml PER PROTOCOL IV ; Start 05/06/19 at 02:00 Ondansetron HCl (Zofran Inj) 4 mg Q6H PRN IV NAUSEA/VOMITING; Start 05/06/19 at 02:00 Morphine Sulfate (morphine) 2 mg Q4H PRN IV .SEVERE PAIN 7-10; Start 05/06/19 at 02:00 Albuterol/ Ipratropium (Duoneb) 3 ml Q2H RESP THERAPY PRN HHN SHORTNESS OF BREATH; Start 05/06/19 at 02:00 Acetaminophen (Tylenol Tab) 650 mg Q6H PRN PEG MILD PAIN(1-3)OR ELEVATED TEMP; Start 05/06/19 at 02:00 Ascorbic Acid (Vitamin C) 500 mg DAILY GTB Last administered on 05/09/19at 08:18; Admin Dose 500 MG; Start 05/06/19 at 09:00 Eye Lubricant (Refresh Plus) 1 drop QID PRN BOTH EYES DRY EYES; Start 05/06/19 at 03:30 Cyanocobalamin (Vitamin B12) 1,000 mcg DAILY GTB Last administered on 05/09/19 08:18; Admin Dose 1,000 MCG; Start 05/06/19 at 09:00 Fluticasone Propionate (Flonase 0.05% Nasal) 2 spray DAILY PRN NASAL ALLERGIC REACTION; Start 05/06/19 at 03:30 Multivitamins (Multivitamin) 30 ml DAILY GTB Last administered on 05/09/19at 08:17; Admin Dose 30 ML; Start 05/06/19 at 09:00 Tetrahydrozoline HCl (Geneyes Oph) 1 drop Q8 PRN BOTH EYES DRY EYES; Start 05/06/19 at 03:30 Phenol (Chloraseptic Throat [place]) 3 spray Q3H PRN MT SORE THROAT; Start 05/06/19 at 06:30 Ferric Sodium Gluconate Complex 125 mg/Sodium Chloride 110 ml @ 110 mls/hr DAILY@1300 IVPB Last administered on 05/09/19at 12:13; Admin Dose 110 MLS/HR; S tart 05/07/19 at 13:00; Stop 05/11/19 at 13:59 Lansoprazole (Prevacid) 30 mg DAILY@06 GTB Last administered on 05/10/19at 05:07; Admin Dose 30 MG; Start 05/08/19 at 06:00 Dextrose/Sodium Chloride 1,000 ml @ 75 mls/hr [id number] IV Last administered on 05/09/19at 23:47; Admin Dose 75 MLS/HR; Start 05/10/19 at 00:00 TENNILLE LUKE MD May 10, 2019 11:25
[2019-05-10] MEDS: SOD FERRIC GLUC COMPLX 125 MG in SOD CHLORIDE 0.9% 100 ML IVPB SCH (13:17)
[2019-05-10] MEDS ORDERED: LIDOCAINE 1% (MDV) 20 ML INJ ONE (13:43)
--- NOTE | 2019-05-10 14:34 | PREAC ---
Date/Time of Note Date/Time of Note DATE: 05/10/19 TIME: 14:32 Anesthesia Eval and Record Evaluation Time Pre-Procedure Interview DATE: 05/10/19 TIME: 14:32 Age 58 Sex male NPO: 8 hrs Preoperative diagnosis Liver mass Planned procedure CT Guided Liver biopsy Past Medical History Past Medical History: Includes Cardio: HTN, Dyslipidemia, Arrythmia Endo: Diabetes Neuro: Peripheral neuropathy Musculoskeletal: Osteoarthritis Renal: CKD GI: GERD Heme: Anemia Surgery & Anesthesia Issues No known issue Meds Anticoagulation: No Beta Melisa within 24 hr: No Reason Beta Melisa not given: Pt. not on B-Melisa Reported Medications Levalbuterol Hcl* (Levalbuterol Hcl*) 1.25 Mg/3 Ml Vial.neb, 1.25 MG INHALATION Q4 PRN for SHORTNESS OF BREATH, VIAL 05/06/19 Ascorbic Acid (Vitamin C) 500 Mg Tab, 500 MG GTB DAILY, TAB 05/06/19 Cyanocobalamin* (Vitamin B-12*) 1,000 Mcg Tablet.sa, 1000 MCG GTB DAILY, TAB 05/06/19 Tetrahydrozoline Hcl* (Visine*) 0.05% - 15 Ml Drops, 1 DROP BOTH EYES Q8 PRN for DRY EYES, #1 EA 05/06/19 Carboxymethylcellulose Sodium* (Refresh Tears*) 15 Ml Drops, 1 DROP BOTH EYES QID PRN for DRY EYES, #1 EA 05/06/19 Multivitamins* (Theragran*) 1 Tab Tab, 1 TAB GTB DAILY, TAB 05/06/19 Magnesium Oxide* (Magnesium Oxide*) 400 Mg Tablet, 800 MG GTB BID, TAB 05/06/19 Lansoprazole* (Lansoprazole*) 15 Mg Capsule.dr, 5 ML GTB AC BREAKFAST, CAP 05/06/19 Fluticasone Propionate (Flonase Allergy Relief) 9.9 Ml Nelson.susp, 2 SPRAY NASAL DAILY PRN for ALLERGIC REACTION, #1 BOTTLE TO EACH NOSTRIL 05/06/19 Ferrous Sulfate* (Ferrous Sulfate*) 325 Mg Tabec, 325 MG GTB DAILY, TAB 05/06/19 Phenol/Glycerin (Chloraseptic [place]) 30 Ml Nelson, 3 SPRAY MM Q2H PRN for SORE THROAT, #1 BOTTLE 05/06/19 Acetaminophen* (Acetaminophen*) 650 Mg Tablet, 650 MG GTB Q6H PRN for PAIN AND OR ELEVATED TEMP, #30 TAB 05/06/19 Acetaminophen* (Acetaminophen*) 325 Mg Tablet, 325 MG GTB Q4H PRN for PAIN AND OR ELEVATED TEMP, #30 TAB 05/06/19 Current Medications IV Flush (NS 3 ml) 3 ml PER PROTOCOL IV ; Start 05/06/19 at 02:00 Ondansetron HCl (Zofran Inj) 4 mg Q6H PRN IV NAUSEA/VOMITING; Start 05/06/19 at 02:00 Morphine Sulfate (morphine) 2 mg Q4H PRN IV .SEVERE PAIN 7-10; Start 05/06/19 at 02:00 Albuterol/ Ipratropium (Duoneb) 3 ml Q2H RESP THERAPY PRN HHN SHORTNESS OF BREATH; Start 05/06/19 at 02:00 Acetaminophen (Tylenol Tab) 650 mg Q6H PRN PEG MILD PAIN(1-3)OR ELEVATED TEMP; Start 05/06/19 at 02:00 Ascorbic Acid (Vitamin C) 500 mg DAILY GTB Last administered on 05/09/19at 08:18; Admin Dose 500 MG; Start 05/06/19 at 09:00 Eye Lubricant (Refresh Plus) 1 drop QID PRN BOTH EYES DRY EYES; Start 05/06/19 at 03:30 Cyanocobalamin (Vitamin B12) 1,000 mcg DAILY GTB Last administered on 05/09/19at 08:18; Admin Dose 1,000 MCG; Start 05/06/19 at 09:00 Fluticasone Propionate (Flonase 0.05% Nasal) 2 spray DAILY PRN NASAL ALLERGIC REACTION; Start 05/06/19 at 03:30 Multivitamins (Multivitamin) 30 ml DAILY GTB Last administered on 05/09/19at 08:17; Admin Dose 30 ML; Start 05/06/19 at 09:00 Tetrahydrozoline HCl (Geneyes Oph) 1 drop Q8 PRN BOTH EYES DRY EYES; Start 05/06/19 at 03:30 Phenol (Chloraseptic Throat [place]) 3 spray Q3H PRN MT SORE THROAT; Start 05/06/19 at 06:30 Ferric Sodium Gluconate Complex 125 mg/Sodium Chloride 110 ml @ 110 mls/hr DAILY@1300 IVPB Last administered on 05/10/19at 13:17; Admin Dose 110 MLS/HR; Start 05/07/19 at 13:00; Stop 05/11/19 at 13:59 Lansoprazole (Prevacid) 30 mg DAILY@06 GTB Last administered on 05/10/19at 05:07; Admin Dose 30 MG; Start 05/08/19 at 06:00 Dextrose/Sodium Chloride 1,000 ml @ 75 mls/hr [id number] IV Last administered on 05/09/19at 23:47; Admin Dose 75 MLS/HR; Start 05/10/19 at 00:00 Meds reviewed: Yes Allergies Coded Allergies: No Known Allergy (Unverified , 05/06/19) Allergies Reviewed: Yes Labs/Studies Labs Reviewed: Reviewed by anesthesiologist Result Diagram: 05/08/19 0501 05/08/19 0501 test: N/A Studies: ECG Pre-procedure Exam Last vitals Vital Signs Date Temp Pulse Resp B/P (MAP) Pulse Ox O2 O2 Flow FiO2 Time Delivery Rate 05/10/19 98.3 81 16 116/66 97 08:07 (83) 05/09/19 Room Air 14:00 Airway: Adequate mouth opening, Adequate thyromental dist Mallampati: Mallampati II Teeth: Normal Lung: Normal Heart: Normal ASA Physical Status ASA physical status: 3 Emergency: None Planned Anesthetic General/MAC: Mask, MAC Pre-operative Attestations Prior to commencing anesthesia and surgery, the patient was re-evaluated, there was verification of: *The patient's identity *The results of appropriate recent lab work and preoperative vital signs *The above evaluation not changing prior to induction *Anesthetic plan, risk benefits, alternative and complications discussed with patient/family; questions answered; patient/family understands, accepts and wishes to proceed. STEPHANIE WALSH May 10, 2019 14:34
[2019-05-10] MEDS ORDERED: LIDOCAINE 100 MG SYRINGE ONE (14:55)
[2019-05-10] MEDS ORDERED: PROPOFOL 20 ML ONE (14:55)
[2019-05-10] MEDS: DEXTROSE 5%-0.45% NACL 1,000 ML IV SCH (17:18)
--- NOTE | 2019-05-10 22:05 | CONS ---
Assessment/Plan Assessment/Plan Hospital Course (Demo Recall) HX GASTRIC CANCER 2018 , POST SURGERY, CURRENTLY WITH DIFFUSE INTRAABDOMINAL METS hepatic lesions consistent with diffuse metastatic disease Large poorly evaluated mass in the right upper quadrant region adjacent to the liver and pancreas and mila hepatis, possibly secondary to recurrent neoplasm History of gastric CA status post gastrectomy Large calcified lymph node in the mila hepatis region as well, also presumably neoplastic. Numerous diffuse scattered multifocal intrahepatic metastatic disease. RECORD FROM [facility]-P MEDICAL SUPPORTIVE CARE D/W IN DETAILS PT NEVER RECEIVED CHEMO IN THE PAST 2 TO [place] POST SURGERY, PROLONGED COMATOSE CONDITION AND POOR PS DOUBT THAT HE WILL BE A GOOD CANDIDATE FOR PALLIATIVE CHEMO SHE WANT TO BE AGGRESSIVE WITH TREATMENT PT NEED TO BE FOLLOWED BY ONCOLOGIST ON O PANEL - EXPLAINED TO , ICE CREAM CHEF CONSULTED AWAIT LIVER BX ANEMIA, COMPLEX WITH COMPONENT Iron deficiency STOOL OB + GI F-UP IV FE MONITOR BLOOD COUNT CLOSELY OBSERVE FOR BLEEDING AND HEMOLYSIS TRANSFUSE NEEDED Direct LUQ J-tube in place Right anterolateral mid abdominal ileostomy, uncomplicated. Previous abdominal surgery with ileostomy, CAD, POST Previous open heart surgery Chronic encephalopathy Severe malnutrition, dietitian consult Consultation Date/Type/Reason Admit Date/Time May 06, 2019 at 00:13 Initial Consult Date 05/06/19 Type of Consult HEMEON Requesting Provider: TENNILLE LUKE MD Date/Time of Note DATE: 05/10/19 TIME: 22:05 24 HR Interval Summary Free Text/Dictation POST LIVER BX NO BLEEDING D/W Exam/Review of Systems Exam Vitals Vital Signs Date Temp Pulse Resp B/P (MAP) Pulse Ox O2 O2 Flow FiO2 Time Delivery Rate 05/10/19 98.6 89 18 111/57 98 19:58 (75) 05/10/19 Room Air 16:05 Intake and Output 05/09/19 05/09/19 05/10/19 1515:00 23:00 07:00 IntakeIntake Total 210 ml 100 ml 1550 ml OutputOutput Total 300 ml 200 ml 200 ml BalanceBalance -90 ml -100 ml 1350 ml Exam Constitutional: alert, oriented, frail Head: normocephalic, atraumatic Eyes: nl conjunctiva, EOMI, nl lids ENMT: nl external ears & nose, nl lips & teeth, nl nasal mucosa & septum Neck: supple, non-tender Respiratory: clear to auscultation, normal air movement; No congested cough, No crackles/rales, No diminished breath sounds, No intercostal retraction, No labored breathing, No respirations, No tactile fremi tus, No wheezing, No other Cardiovascular: regular rate and rhythm, nl pulses; No bruits, No diastolic murmur, No edema, No gallop, No irregular rhythm, No jugular venous distention (JVD), No murmurs/extra sounds, No rub, No systolic murmur, No S3, No S4, No other Gastrointestinal: soft, nl liver, spleen Musculoskeletal: nl extremities to inspection Extremities: normal pulses; No calf tenderness, No cyanosis, No clubbing, No edema, No pitting pedal edema, No palpable cord, No tenderness, No other Neurological: SORTING MACHINE ATTENDANT II-XII intact, nl mental status Results Result Diagram: 05/08/19 0501 05/08/19 0501 Medications Medication Current Medications IV Flush (NS 3 ml) 3 ml PER PROTOCOL IV ; Start 05/06/19 at 02:00 Ondansetron HCl (Zofran Inj) 4 mg Q6H PRN IV NAUSEA/VOMITING; Start 05/06/19 at 02:00 Morphine Sulfate (morphine) 2 mg Q4H PRN IV .SEVERE PAIN 7-10; Start 05/06/19 at 02:00 Albuterol/ Ipratropium (Duoneb) 3 ml Q2H RESP THERAPY PRN HHN SHORTNESS OF BREATH; Start 05/06/19 at 02:00 Acetaminophen (Tylenol Tab) 650 mg Q6H PRN PEG MILD PAIN(1-3)OR ELEVATED TEMP; Start 05/06/19 at 02:00 Ascorbic Acid (Vitamin C) 500 mg DAILY GTB Last administered on 05/09/19at 08:18; Admin Dose 500 MG; Start 05/06/19 at 09:00 Eye Lubricant (Refresh Plus) 1 drop QID PRN BOTH EYES DRY EYES; Start 05/06/19 at 03:30 Cyanocobalamin (Vitamin B12) 1,000 mcg DAILY GTB Last administered on 05/09/19at 08:18; Admin Dose 1,000 MCG; Start 05/06/19 at 09:00 Fluticasone Propionate (Flonase 0.05% Nasal) 2 spray DAILY PRN NASAL ALLERGIC REACTION; Start 05/06/19 at 03:30 Multivitamins (Multivitamin) 30 ml DAILY GTB Last administered on 05/09/19at 08:17; Admin Dose 30 ML; Start 05/06/19 at 09:00 Tetrahydrozoline HCl (Geneyes Oph) 1 drop Q8 PRN BOTH EYES DRY EYES; Start 05/06/19 at 03:30 Phenol (Chloraseptic Throat [place]) 3 spray Q3H PRN MT SORE THROAT; Start 05/06/19 at 06:30 Ferric Sodium Gluconate Complex 125 mg/Sodium Chloride 110 ml @ 110 mls/hr DAILY@1300 IVPB Last administered on 05/10/19 13:17; Admin Dose 110 MLS/HR; Start 05/07/19 at 13:00; Stop 05/11/19 at 13:59 Lansoprazole (Prevacid) 30 mg DAILY@06 GTB Last administered on 05/10/19at 05:07; Admin Dose 30 MG; Start 05/08/19 at 06:00 Dextrose/Sodium Chloride 1,000 ml @ 75 mls/hr [id number] IV Last administered on 05/10/19at 17:18; Admin Dose 75 MLS/HR; Start 05/10/19 at 00:00 YESSY RICH MD May 10, 2019 22:05
[2019-05-11 02:05] VITALS: BP 118/63; PULSE 90; RESP 16
[2019-05-11] MEDS: DEXTROSE 5%-0.45% NACL 1,000 ML IV SCH ×2 (02:40→06:32)
[2019-05-11] MEDS: LANSOPRAZOLE 30 MG CAP GTB SCH (05:31)
--- NOTE | 2019-05-11 07:31 | PAC ---
Date/Time of Note Date/Time of Note DATE: 05/11/19 TIME: 07:31 Post-Anesthesia Notes Post-Anesthesia Note Last documented vital signs Vital Signs Date Temp Pulse Resp B/P (MAP) Pulse Ox O2 O2 Flow FiO2 Time Delivery Rate 05/11/19 98.6 90 16 118/63 97 02:05 (81) 05/10/19 Room Air 16:05 Activity: WNL Respiratory function: WNL Cardiovascular function: WNL Mental status: Baseline Pain reasonably controlled: Yes Hydration appropriate: Yes Nausea/Vomiting absent: Yes STEPHANIE WALSH May 11, 2019 07:31
[2019-05-11 08:00] VITALS: BP 132/67; PULSE 80; RESP 22
[2019-05-11] MEDS: MULTIVITAMINS 30 ML CUP GTB SCH (09:18)
[2019-05-11] MEDS: ASCORBIC ACID 500 MG TAB GTB SCH (09:18)
[2019-05-11] MEDS: CYANOCOBALAMIN 500 MCG TAB GTB SCH (09:18)
--- NOTE | 2019-05-11 11:05 | DS ---
Date/Time of Note Date/Time of Note DATE: 05/11/19 TIME: 10:55 Discharge Summary Admission/Discharge Info Admit Date/Time May 06, 2019 at 00:13 Discharge Date/Time Discharge Diagnosis 1. A large poorly evaluated mass in the right upper quadrant region adjacent to the liver and pancreas and mila hepatis, multiple liver masses, consistent with metastasis, s/p liver mass biopsy on 05/10/2019, oncologist to follow up with biopsy report 2. Iron deficiency anemia, malignancy related and slow GI loss, improving, on iron supplement 3. History of gastric CA status post gastrectomy in 07/16/2018 at [facility] 4. s/p ileostomy 5. J-tube 6. Previous open heart surgery in [facility] 17 years ago 7. Chronic encephalopathy 8. Severe malnutrition, encourage intake Patient Condition: Stable Hospital Course This a 41-year-old male with past medical history of gastric CA status post gastrectomy, open heart surgery, cardiac arrest, previously on dialysis, multiple abdominal surgeries with right ileostomy who presented to the hospital per the directions of their physician for anemia. At time evaluation patient is resting in bed J-tube in place with ileostomy and noted brown frothy stool patient's denies any overt signs of GI bleed including hematemesis or hematochezia or melena. J-tube was visualized with dark material within the J- tube, patient's states this is from medication i.e. iron. lavage was completed no blood was noted. I discussed possibility of endoscopic evaluation at this time EGD and colonoscopy was declined. CT abdomen pelvis was obtained without contrast enlarged poorly evaluated mass in the right upper quadrant region adjacent to the liver and pancreas and mila hepatis, presumably secondary to recurrent neoplasm, numerous diffuse scattered multifocal intrahepatic metastatic disease. Left lower quadrant J-tube in place and grossly appropriate location. Right anterior lateral mid abdominal ileostomy, uncomplicated. Scattered benign chronic changes seen elsewhere throughout the study. H/H were 7/24.6 on admission that he got iv iron supplement, H/H are 8.5/28.1 on 05/11/2019. He will continue on iron supplement. The etiology of anemia is multifactorial including malignancy, nutritional or possible GI loss. EGD is offered but patient and his declines it. The abdominal mass and multiple liver masses consistent with metastatic lesions. Condition and treatment plan are discussed with the patient and his that they want further treatment. CT-guided liver mass biopasy was done on 05/10/2019 without complications, pathology is still pending. Patient and his are instructed to follow up with his oncologist to follow up with the biopsy report and further treatment. Patient insists on going back to [facility] today to keep the bed there. Home Meds Reported Medications Levalbuterol Hcl* (Levalbuterol Hcl*) 1.25 Mg/3 Ml Vial.neb, 1.25 MG INHALATION Q4 PRN for SHORTNESS OF BREATH, VIAL 05/06/19 Ascorbic Acid (Vitamin C) 500 Mg Tab, 500 MG GTB DAILY, TAB 05/06/19 Cyanocobalamin* (Vitamin B-12*) 1,000 Mcg Tablet.sa, 1000 MCG GTB DAILY, TAB 05/06/19 Tetrahydrozoline Hcl* (Visine*) 0.05% - 15 Ml Drops, 1 DROP BOTH EYES Q8 PRN for DRY EYES, #1 EA 05/06/19 Carboxymethylcellulose Sodium* (Refresh Tears*) 15 Ml Drops, 1 DROP BOTH EYES QID PRN for DRY EYES, #1 EA 05/06/19 Multivitamins* (Theragran*) 1 Tab Tab, 1 TAB GTB DAILY, TAB 05/06/19 Magnesium Oxide* (Magnesium Oxide*) 400 Mg Tablet, 800 MG GTB BID, TAB 05/06/19 Lansoprazole* (Lansoprazole*) 15 Mg Capsule.dr, 5 ML GTB AC BREAKFAST, CAP 05/06/19 Fluticasone Propionate (Flonase Allergy Relief) 9.9 Ml [place].susp, 2 SPRAY NASAL DAILY PRN for ALLERGIC REACTION, #1 BOTTLE TO EACH NOSTRIL 05/06/19 Ferrous Sulfate* (Ferrous Sulfate*) 325 Mg Tabec, 325 MG GTB DAILY, TAB 05/06/19 Phenol/Glycerin (Chloraseptic Max [place]) 30 Ml [place], 3 SPRAY MM Q2H PRN for SORE THROAT, #1 BOTTLE 05/06/19 Acetaminophen* (Acetaminophen*) 650 Mg Tablet, 650 MG GTB Q6H PRN for PAIN AND OR ELEVATED TEMP, #30 TAB 05/06/19 Acetaminophen* (Acetaminophen*) 325 Mg Tablet, 325 MG GTB Q4H PRN for PAIN AND OR ELEVATED TEMP, #30 TAB 05/06/19 Follow-up Plan 1. oncology to follow up the liver mass biopsy report, done on 05/10/2019 2. Follow up with oncology 3. PCP follow up Primary Care Provider Not On Staff Doctor Pending Labs Laboratory Tests Test 05/11/19 04:44 White Blood Count 9.5 10^3/ul (4.8-10.8) Red Blood Count 3.82 10^6/ul (4.70-6.10) Hemoglobin 8.5 g/dl (14.0-18.0) Hematocrit 28.1 % (42.0-52.0) Mean Corpuscular Volume 73.6 fl (82.0-101.0) Mean Corpuscular Hemoglobin 22.3 pg (29.0-33.0) Mean Corpuscular Hemoglobin Concent 30.2 g/dl (32.0-37.0) Red Cell Distribution Width 20.5 % (11.5-14.5) Platelet Count 509 10^3/UL (140-415) Mean Platelet Volume 8.6 fl (7.4-10.4) Immature Granulocytes % 0.600 % (0.001-0.429) Neutrophils % 70.9 % (39.0-77.0) Lymphocytes % 17.1 % (15.0-51.0) Monocytes % 9.7 % (0.0-11.0) Eosinophils % 1.2 % (0.0-7.0) Basophils % 0.5 % (0.0-2.0) Nucleated Red Blood Cells % 0.0 /100WBC (0.0-0.0) Immature Granulocytes # 0.060 10^3/ul (0.0-0.031) Neutrophils # 6.7 10^3/ul (1.6-7.5) Lymphocytes # 1.6 10^3/ul (0.8-2.9) Monocytes # 0.9 10^3/ul (0.3-0.9) Eosinophils # 0.1 10^3/ul (0.0-0.5) Basophils # 0.1 10^3/ul (0.0-0.1) Nucleated Red Blood Cells # 0.0 10^3/ul (0.0-0.0) Sodium Level 136 mmol/L (135-144) Potassium Level 4.3 mmol/L (3.5-5.1) Chloride Level 101 mmol/L (97-110) Carbon Dioxide Level 29 mmol/L (21-31) Anion Gap 6 (5-13) Blood Urea Nitrogen 9 mg/dl (7-20) Creatinine 0.76 mg/dl (0.61-1.24) Est Glomerular Filtrat Rate mL/min > 60 mL/min (>60) Glucose Level 127 mg/dl (70-220) Calcium Level 9.0 mg/dl (8.4-10.2) TENNILLE LUKE MD May 11, 2019 11:05
[2019-05-11] MEDS: SOD FERRIC GLUC COMPLX 125 MG in SOD CHLORIDE 0.9% 100 ML IVPB SCH (13:34)
[2019-05-11 14:00] VITALS: BP 122/71; PULSE 96; RESP 24
--- NOTE | 2019-05-11 22:04 | CONS ---
Assessment/Plan Assessment/Plan Hospital Course (Demo Recall) HX GASTRIC CANCER 2018 , POST SURGERY, CURRENTLY WITH DIFFUSE INTRAABDOMINAL METS hepatic lesions consistent with diffuse metastatic disease Large poorly evaluated mass in the right upper quadrant region adjacent to the liver and pancreas and mila hepatis, possibly secondary to recurrent neoplasm History of gastric CA status post gastrectomy Large calcified lymph node in the mila hepatis region as well, also presumably neoplastic. Numerous diffuse scattered multifocal intrahepatic metastatic disease. 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 Previous abdominal surgery with ileostomy, CAD, POST Previous open heart surgery Chronic encephalopathy Severe malnutrition, dietitian consult OK TO DC F-UP WITH HEMEONC ON HMO PANEL VK LE Consultation Date/Type/Reason Admit Date/Time May 06, 2019 at 00:13 Initial Consult Date 05/06/19 Type of Consult HEMEONC Requesting Provider: TENNILLE LUKE MD Date/Time of Note DATE: 05/11/19 TIME: 22:02 24 HR Interval Summary Free Text/Dictation ALL NOTED NAD D/W DR RAI- PATH- ADENOCA, STAINS - P Exam/Review of Systems Exam Vitals Vital Signs Date Temp Pulse Resp B/P (MAP) Pulse Ox O2 O2 Flow FiO2 Time Delivery Rate 05/11/19 96 24 122/71 96 14:00 (88) 05/11/19 98.7 08:00 05/10/19 Room Air 16:05 Intake and Output 05/10/19 05/10/19 05/11/19 1515:00 23:00 07:00 IntakeIntake Total 110 ml 600 ml 1000 ml BalanceBalance 110 ml 600 ml 1000 ml Exam Constitutional: alert, oriented, frail Head: normocephalic, atraumatic Eyes: nl conjunctiva, EOMI, nl lids ENMT: nl external ears & nose, nl lips & teeth, nl nasal mucosa & septum Neck: supple, non-tender Respiratory: clear to auscultation, normal air movement; No congested cough, No crackles/rales, No diminished breath sounds, No intercostal retraction, No labored breathing, No respirations, No tactile fremitus, No wheezing, No other Cardiovascular: regular rate and rhythm, nl pulses; No bruits, No diastolic murmur, No edema, No gallop, No irregular rhythm, No jugular venous distention (JVD), No murmurs/extra sounds, No rub, No systolic murmur, No S3, No S4, No other Gastrointestinal: soft, nl liver, spleen Musculoskeletal: nl extremities to inspection Extremities: normal pulses; No calf tenderness, No cyanosis, No clubbing, No edema, No pitting pedal edema, No palpable cord, No tenderness, No other 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, nl mental status Results Result Diagram: 05/11/194 05/11/19 0444 Results 24hrs Laboratory Tests Test 05/11/19 04:44 White Blood Count 9.5 Red Blood Count 3.82 L Hemoglobin 8.5 L Hematocrit 28.1 L Mean Corpuscular Volume 73.6 L Mean Corpuscular Hemoglobin 22.3 L Mean Corpuscular Hemoglobin Concent 30.2 L Red Cell Distribution Width 20.5 H Platelet Count 509 H Mean Platelet Volume 8.6 Immature Granulocytes % 0.600 H Neutrophils % 70.9 Lymphocytes % 17.1 Monocytes % 9.7 Eosinophils % 1.2 Basophils % 0.5 Nucleated Red Blood Cells % 0.0 Immature Granulocytes # 0.060 H Neutrophils # 6.7 Lymphocytes # 1.6 Monocytes # 0.9 Eosinophils # 0.1 Basophils # 0.1 Nucleated Red Blood Cells # 0.0 Sodium Level 136 Potassium Level 4.3 Chloride Level 101 Carbon Dioxide Level 29 Anion Gap 6 Blood Urea Nitrogen 9 Creatinine 0.76 Est Glomerular Filtrat Rate mL/min > 60 Glucose Level 127 Calcium Level 9.0 YESSY RICH MD May 11, 2019 22:04
== END 2019-05-11 16:00 | DRG 435 ==
LOC: PP2 00:13
PROVIDERS: ADMIT Internal Medicine; ATTEND Internal Medicine
PROC: 0FD13ZX Extraction of Right Lobe Liver, Percutaneous Approach, Diagnostic (ICD-10-PCS; principal; 2019-05-10)
DX: C78.7 Secondary malignant neoplasm of liver and intrahepatic bile duct (principal); E43 Unspecified severe protein-calorie malnutrition; C79.89 Secondary malignant neoplasm of other specified sites; G93.49 Other encephalopathy; Z68.1 Body mass index [BMI] 19.9 or less, adult; D63.0 Anemia in neoplastic disease; D50.0 Iron deficiency anemia secondary to blood loss (chronic); Z85.028 Personal history of other malignant neoplasm of stomach; Z86.73 Personal history of transient ischemic attack (TIA), and cerebral infarction without residual deficits; Z93.2 Ileostomy status
CPT/HCPCS: 36430; 74170; 74176; 77012; 80048; 80053; 80061; 82270; 82378; 82607; 82728; 82746; 83036; 83540; 83615; 83735; 84100; 84443; 85025; 85610; 85730; 86850; 86900; 86901; 86920; 87081; 88307; 88313; C9113; J2001; J2916; J7042; P9016; Q9967

== ENCOUNTER 2019-06-19 17:03 | Emergency (ER) | payer OTHER ==
[~2019-06-19] VITALS: Ht 180.3 cm; Wt 70.0 kg
[~2019-06-19 17:03] MED LIST: ACET325T45 GTB; ASC500 GTB; CARB15DR3 BOTH EYES; DOCU-144 PO; FERR220S13 PO; FLUT16SP17 NASAL; LANSOPRAZOLE 3MG/ML GTB; LEVA1.257 INHALATION; MAGN400T28 GTB; MULT-105 GTB; PANT40TA4 PO; PHEN30SP8 MM; SULF5DRO17 LEFT EYE; TETR15DR63 BOTH EYES
[2019-06-19 17:16] VITALS: Ht 180.3 cm; Wt 70.0 kg
[2019-06-19 21:07] VITALS: BP 120/70; PULSE 105; RESP 21
== END 2019-06-19 22:45 | disposition home or self-care (01) ==
LOC: E/R 17:03
DX: D64.9 Anemia, unspecified (principal); C16.9 Malignant neoplasm of stomach, unspecified; I25.10 Atherosclerotic heart disease of native coronary artery without angina pectoris; Z93.2 Ileostomy status
CPT/HCPCS: 80048; 85025; 86850; 86900; 86901; Z7502; 99283

== ENCOUNTER 2019-07-08 11:15 | Emergency (ER) | payer OTHER ==
[~2019-07-08] VITALS: Ht 167.6 cm; Wt 59.8 kg
[~2019-07-08 11:15] MED LIST changes: -MAGN400T28 GTB; +MAGN400T8 GTB
[2019-07-08 11:20] VITALS: Ht 167.6 cm; Wt 59.8 kg
[2019-07-08] MEDS ORDERED: PANTOPRAZOLE 40 MG INJ IV ONE (12:00)
[2019-07-08] MEDS ORDERED: SOD CHLORIDE 0.9% 1,000 ML IV ONE (14:30)
[2019-07-08 19:37] VITALS: BP 115/63; PULSE 103; RESP 16
== END 2019-07-08 20:05 | disposition home or self-care (01) ==
LOC: E/R 11:15
DX: E86.0 Dehydration (principal); D72.829 Elevated white blood cell count, unspecified; E87.0 Hyperosmolality and hypernatremia; E86.1 Hypovolemia; D64.9 Anemia, unspecified; D47.3 Essential (hemorrhagic) thrombocythemia; K76.9 Liver disease, unspecified; C78.89 Secondary malignant neoplasm of other digestive organs; I25.10 Atherosclerotic heart disease of native coronary artery without angina pectoris
CPT/HCPCS: 36415; 80053; 84484; 85025; 85610; 85730; 86850; 86900; 86901; 93005; 96374; C9113; J7030; Z7502; Z7610